=== PATIENT | male | born 1935 | race American Indian/Alaskan Native ===

== ENCOUNTER 2022-03-24 05:00 | Inpatient (IN) | payer MEDICARE ==
--- NOTE | 2022-03-24 05:08 | Event Note ---
Date: 03/24/22 EMS documentation not available at time of chart dictation Verbal report received from emergency medical services Medical screening examination note: 86-year-old gentleman with reported history of dementia, brought to the hospital by emergency medical services. Apparently, the patient was at home, and was felt to be less responsive than usual, and thus family called 911. EMS reports the patient is awake, and vigorously moving extremities in the ambulance. They report unremarkable vital signs and unremarkable Accu-Chek. In the emergency room, the patient is awake, moving 4 extremities, breathing spontaneously, and endorses no acute complaints. Suspect underlying dementia. Obtain appropriate laboratory studies, urinalysis, noncontrast CT scan of the brain. Detailed history and physical to be performed by oncoming ER provider. Vital Signs 03/24/22 05:05 Temperature 98.6 F Pulse Rate 80 Respiratory 16 Rate Blood Pressure 117/82 [Right] O2 Sat by Pulse 99 Oximetry
--- NOTE | 2022-03-24 05:43 | XRay Report ---
CHEST 1 VIEW INDICATION / CLINICAL INFORMATION: Altered Mental Status. COMPARISON: None available. FINDINGS: SUPPORT DEVICES: None. HEART / MEDIASTINUM: No significant abnormality. LUNGS / PLEURA: No significant pulmonary or pleural abnormality. No pneumothorax. ADDITIONAL FINDINGS: No significant additional findings. IMPRESSION: 1. No acute findings. Signer Name: Munir Nava MD Signed: 03/24/2022 5:39 AM Workstation Name: [id number]
[2022-03-24 05:58] LABS: Albumin 4.1 g/dL (3.9-5); Calcium 9.8 mg/dL (8.4-10.2)
[2022-03-24 06:07] LABS: Mean Corpuscular HGB Conc 33 % (32-34); Mean Corpuscular Volume 87 fl (84-94); Platelet Count 174 K/mm3 (140-440); Red Blood Count 4.15 M/mm3 (3.65-5.03); Red Cell Distribution Width 14.7 % (13.2-15.2)
[2022-03-24 06:13] LABS: Chol/HDL Ratio 4.87 %
[2022-03-24 06:33] LABS: INR 1.03 (0.87-1.13)
[2022-03-24] MEDS ORDERED: SODIUM CHLORIDE 0.9% 1000 ML 1,000 ML IV ONE (06:35)
--- NOTE | 2022-03-24 06:35 | Cat Scan Report ---
CT HEAD WITHOUT CONTRAST INDICATION / CLINICAL INFORMATION: Altered Mental Status. TECHNIQUE: All CT scans at this location are performed using CT dose reduction for ALARA by means of automated e xposure control. COMPARISON: None available. FINDINGS: HEMORRHAGE: None. EXTRA-AXIAL SPACES: Normal in size and morphology for the patient's age. VENTRICULAR SYSTEM: Normal in size and morphology for the patient's age. 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 Moderate cerebral atrophy. No significant abnormality. No acute territorial infarct. MIDLINE SHIFT OR HERNIATION: None. CEREBELLUM / BRAINSTEM: No significant abnormality. ORBITS: Normal as visualized. SOFT TISSUES of HEAD: No significant abnormality. CALVARIUM: No significant abnormality. PARANASAL SINUSES / MASTOID AIR CELLS: Moderate mucosal thickening right maxillary sinus. ADDITIONAL FINDINGS: None. IMPRESSION: 1. No acute intracranial abnormality. 2. Severe microangiopathy 3. Mucosal sinus disease right maxillary sinus Signer Name: Munir Nava MD Signed: 03/24/2022 6:30 AM Workstation Name: [id number]
--- NOTE | 2022-03-24 06:41 | Emergency Department Report ---
ED Altered Mental Status HPI - General Chief Complaint: Altered Mental Status Stated Complaint: AMS Time Seen by Provider: 03/24/22 06:12 Source: family, EMS Mode of arrival: Stretcher Limitations: No Limitations - History of Present Illness Initial Comments: Patient is 86-year-old male with history of dementia and benign prostatic hypertrophy. Patient brought to the emergency room via EMS from home for evaluation of altered mental status. Patient daughter at bedside and giving the story. She stated that he went to the bathroom around 4 AM and when she went back to check on him she found him leaning on the toilet backwards and not breathing. Patient daughter stated that she immediately called 911 and approximately 5 minutes later she saw him moving his left upper extremity. Upon arrival to the ER patient was agitated and required restraint. Patient is moving all his extremities no facial droop was noticed. Stroke scale was 0. MD Complaint: altered mental status -: Sudden, This morning - Related Data Allergies Allergy/AdvReac Type Severity Reaction Status Date / Time No Known Allergies Allergy Verified 03/24/22 05:19 ED Review of Systems ROS: Stated complaint: AMS Other details as noted in HPI Comment: Unobtainable due to pts medical conditions ED Physical Exam - General Limitations: No Limitations General appearance: alert, in no apparent distress - Head Head exam: Present: atraumatic, normocephalic, normal inspection - Eye Eye exam: Present: normal appearance - ENT ENT exam: Present: mucous membranes dry - Neck Neck exam: Present: normal inspection, full ROM. Absent: tenderness, meningismus - Respiratory Respiratory exam: Present: normal lung sounds bilaterally - Cardiovascular Cardiovascular Exam: Present: regular rate, normal rhythm, normal heart sounds - GI/Abdominal GI/Abdominal exam: Present: soft, normal bowel sounds. Absent: distended, tenderness, guarding, rebound, rigid, organomegaly, mass, bruit, pulsatile mass, hernia - Extremities Exam Extremities exam: Present: normal inspection, full ROM, normal capillary refill. Absent: tenderness - Back Exam Back exam: Present: normal inspection, full ROM. Absent: CVA tenderness (R), CVA tenderness (L) - Neurological Exam Neurological exam: Present: alert, altered, CN II-XII intact, reflexes normal. Absent: motor sensory deficit - Psychiatric Psychiatric exam: Present: flat affect - Skin Skin exam: Present: warm, intact, normal color ED Course Vital Signs 03/24/22 03/24/22 05:05 05:52 Temperature 98.6 F 97.8 F Pulse Rate 80 77 Respiratory 16 16 Rate Blood Pressure 117/82 107/67 [Right] O2 Sat by Pulse 99 100 Oximetry - Lab Data Result diagrams: 03/24/22 05:10 03/24/22 05:10 Lab Results 03/24/22 03/24/22 03/24/22 Range/Units 05:10 05:10 05:10 WBC 3.1 L (4.5-11.0) K/mm3 RBC 4.15 (3.65-5.03) M/mm3 Hgb 12.0 (11.8-15.2) gm/dl Hct 36.0 (35.5-45.6) % MCV 87 (84-94) fl MCH 29 (28-32) pg MCHC 33 (32-34) % RDW 14.7 (13.2-15.2) % Plt Count 174 (140-440) K/mm3 Add Manual Diff Complete Total Counted 100 Seg Neuts % (Manual) 77.0 H (40.0-70.0) % Band Neutrophils % 0 % Lymphocytes % (Manual) 21.0 (13.4-35.0) % Reactive Lymphs % (Man) 0 % Monocytes % (Manual) 1.0 (0.0-7.3) % Eosinophils % (Manual) 1.0 (0.0-4.3) % Basophils % (Manual) 0 (0.0-1.8) % Metamyelocytes % 0 % Myelocytes % 0 % Promyelocytes % 0 % Blast Cells % 0 % Nucleated RBC % Not Reportable Seg Neutrophils # Man 2.4 (1.8-7.7) K/mm3 Band Neutrophils # 0.0 K/mm3 Lymphocytes # (Manual) 0.7 L (1.2-5.4) K/mm3 Abs React Lymphs (Man) 0.0 K/mm3 Monocytes # (Manual) 0.0 (0.0-0.8) K/mm3 Eosinophils # (Manual) 0.0 (0.0-0.4) K/mm3 Basophils # (Manual) 0.0 (0.0-0.1) K/mm3 Metamyelocytes # 0.0 K/mm3 Myelocytes # 0.0 K/mm3 Promyelocytes # 0.0 K/mm3 Blast Cells # 0.0 K/mm3 WBC Morphology Not Reportable Hypersegmented Neuts Not Reportable Hyposegmented Neuts Not Reportable Hypogranular Neuts Not Reportable Smudge Cells Not Reportable Toxic Granulation Not Reportable Toxic Vacuolation Not Reportable Dohle Bodies Not Reportable Pelger-Huet Anomaly Not Reportable Nadine Rods Not Reportable Platelet Estimate Consistent w auto Clumped Platelets Not Reportable Plt Clumps, EDTA Not Reportable Large Platelets Not Reportable Giant Platelets Not Reportable Platelet Satelliting Not Reportable Plt Morphology Comment Not Reportable RBC Morphology Not Reportable Dimorphic RBCs Not Reportable Polychromasia Not Reportable Hypochromasia Not Reportable Poikilocytosis Not Reportable Anisocytosis Not Reportable Microcytosis Not Reportable Macrocytosis Not Reportable Spherocytes Not Reportable Pappenheimer Bodies Not Reportable Sickle Cells Not Reportable Target Cells Not Reportable Tear Drop Cells Not Reportable Ovalocytes 1+ Helmet Cells Not Reportable [place] Bodies Not Reportable Ing[place] Rings Not Reportable Malia Cells Not Reportable Bite Cells Not Reportable Crenated Cell Not Reportable Elliptocytes Not Reportable Acanthocytes (Spur) Not Reportable Rouleaux Not Reportable Hemoglobin C Crystals Not Reportable Schistocytes Not Reportable Malaria parasites Not Reportable Elias Bodies Not Reportable Hem Pathologist Commnt No PT 14.6 (12.2-14.9) Sec. INR 1.03 (0.87-1.13) Sodium 144 (137-145) mmol/L Potassium 4.1 (3.6-5.0) mmol/L Chloride 109.8 H (98-107) mmol/L Carbon Dioxide 18 L (22-30) mmol/L Anion Gap 20 mmol/L BUN 23 H (9-20) mg/dL Creatinine 1.7 H (0.8-1.3) mg/dL Estimated GFR 38 ml/min BUN/Creatinine Ratio 14 % Glucose 105 H (75-100) mg/dL Calcium 9.8 (8.4-10.2) mg/dL Magnesium 2.30 (1.7-2.3) mg/dL Total Bilirubin 1.30 H (0.1-1.2) mg/dL AST 17 (5-40) units/L ALT 10 (7-56) units/L Alkaline Phosphatase 70 (35-129) units/L Ammonia (25-60) umol/L Total Creatine Kinase 145 (55-170) units/L Troponin T 0.058 H (0.00-0.029) ng/mL Total Protein 7.3 (6.3-8.2) g/dL Albumin 4.1 (3.9-5) g/dL Albumin/Globulin Ratio 1.3 % Triglycerides 122 (2-149) mg/dL Cholesterol 195 (50-199) mg/dL LDL Cholesterol Direct 124 (50-130) mg/dL HDL Cholesterol 40 (40-59) mg/dL Cholesterol/HDL Ratio 4.87 % TSH (0.270-4.200) mlU/mL Salicylates (2.8-20.0) mg/dL Acetaminophen (10.0-30.0) ug/mL Plasma/Serum Alcohol (0-0.07) % 03/24/22 03/24/22 03/24/22 Range/Units 05:10 05:10 05:10 WBC (4.5-11.0) K/mm3 RBC (3.65-5.03) M/mm3 Hgb (11.8-15.2) gm/dl Hct (35.5-45.6) % MCV (84-94) fl MCH (28-32) pg MCHC (32-34) % RDW (13.2-15.2) % Plt Count (140-440) K/mm3 Add Manual Diff Total Counted Seg Neuts % (Manual) (40.0-70.0) % Band Neutrophils % % Lymphocytes % (Manual) (13.4-35.0) % Reactive Lymphs % (Man) % Monocytes % (Manual) (0.0-7.3) % Eosinophils % (Manual) (0.0-4.3) % Basophils % (Manual) (0.0-1.8) % Metamyelocytes % % Myelocytes % % Promyelocytes % % Blast Cells % % Nucleated RBC % Seg Neutrophils # Man (1.8-7.7) K/mm3 Band Neutrophils # K/mm3 Lymphocytes # (Manual) (1.2-5.4) K/mm3 Abs React Lymphs (Man) K/mm3 Monocytes # (Manual) (0.0-0.8) K/mm3 Eosinophils # (Manual) (0.0-0.4) K/mm3 Basophils # (Manual) (0.0-0.1) K/mm3 Metamyelocytes # K/mm3 Myelocytes # K/mm3 Promyelocytes # K/mm3 Blast Cells # K/mm3 WBC Morphology Hypersegmented Neuts Hyposegmented Neuts Hypogranular Neuts Smudge Cells Toxic Granulation Toxic Vacuolation Dohle Bodies Pelger-Huet Anomaly Nadine Rods Platelet Estimate Clumped Platelets Plt Clumps, EDTA Large Platelets Giant Platelets Platelet Satelliting Plt Morphology Comment RBC Morphology Dimorphic RBCs Polychromasia Hypochromasia Poikilocytosis Anisocytosis Microcytosis Macrocytosis Spherocytes Pappenheimer Bodies Sickle Cells Target Cells Tear Drop Cells Ovalocytes Helmet Cells Benson-[place] Bodies Ingalls Rings Malia Cells Bite Cells Crenated Cell Elliptocytes Acanthocytes (Spur) Rouleaux Hemoglobin C Crystals Schistocytes Malaria parasites Elias Bodies Hem Pathologist Commnt PT (12.2-14.9) Sec. INR (0.87-1.13) Sodium (137-145) mmol/L Potassium (3.6-5.0) mmol/L Chloride (98-107) mmol/L Carbon Dioxide (22-30) mmol/L Anion Gap mmol/L BUN (9-20) mg/dL Creatinine (0.8-1.3) mg/dL Estimated GFR ml/min BUN/Creatinine Ratio % Glucose (75-100) mg/dL Calcium (8.4-10.2) mg/dL Magnesium (1.7-2.3) mg/dL Total Bilirubin (0.1-1.2) mg/dL AST (5-40) units/L ALT (7-56) units/L Alkaline Phosphatase (35-129) units/L Ammonia 14.0 L (25-60) umol/L Total Creatine Kinase (55-170) units/L Troponin T (0.00-0.029) ng/mL Total Protein (6.3-8.2) g/dL Albumin (3.9-5) g/dL Albumin/Globulin Ratio % Triglycerides (2-149) mg/dL Cholesterol (50-199) mg/dL LDL Cholesterol Direct (50-130) mg/dL HDL Cholesterol (40-59) mg/dL Cholesterol/HDL Ratio % TSH 2.580 (0.270-4.200) mlU/mL Salicylates < 0.3 L (2.8-20.0) mg/dL Acetaminophen (10.0-30.0) ug/mL Plasma/Serum Alcohol (0-0.07) % 03/24/22 03/24/22 Range/Units 05:10 05:10 WBC (4.5-11.0) K/mm3 RBC (3.65-5.03) M/mm3 Hgb (11.8-15.2) gm/dl Hct (35.5-45.6) % MCV (84-94) fl MCH (28-32) pg MCHC (32-34) % RDW (13.2-15.2) % Plt Count (140-440) K/mm3 Add Manual Diff Total Counted Seg Neuts % (Manual) (40.0-70.0) % Band Neutrophils % % Lymphocytes % (Manual) (13.4-35.0) % Reactive Lymphs % (Man) % Monocytes % (Manual) (0.0-7.3) % Eosinophils % (Manual) (0.0-4.3) % Basophils % (Manual) (0.0-1.8) % Metamyelocytes % % Myelocytes % % Promyelocytes % % Blast Cells % % Nucleated RBC % Seg Neutrophils # Man (1.8-7.7) K/mm3 Band Neutrophils # K/mm3 Lymphocytes # (Manual) (1.2-5.4) K/mm3 Abs React Lymphs (Man) K/mm3 Monocytes # (Manual) (0.0-0.8) K/mm3 Eosinophils # (Manual) (0.0-0.4) K/mm3 Basophils # (Manual) (0.0-0.1) K/mm3 Metamyelocytes # K/mm3 Myelocytes # K/mm3 Promyelocytes # K/mm3 Blast Cells # K/mm3 WBC Morphology Hypersegmented Neuts Hyposegmented Neuts Hypogranular Neuts Smudge Cells Toxic Granulation Toxic Vacuolation Dohle Bodies Pelger-Huet Anomaly Nadine Rods Platelet Estimate Clumped Platelets Plt Clumps, EDTA Large Platelets Giant Platelets Platelet Satelliting Plt Morphology Comment RBC Morphology Dimorphic RBCs Polychromasia Hypochromasia Poikilocytosis Anisocytosis Microcytosis Macrocytosis Spherocytes Pappenheimer Bodies Sickle Cells Target Cells Tear Drop Cells Ovalocytes Helmet Cells Benson-[place] Bodies Ing[place] Rings Cornish Cells Bite Cells Crenated Cell Elliptocytes Acanthocytes (Spur) Rouleaux Hemoglobin C Crystals Schistocytes Malaria parasites Elias Bodies Hem Pathologist Commnt PT (12.2-14.9) Sec. INR (0.87-1.13) Sodium (137-145) mmol/L Potassium (3.6-5.0) mmol/L Chloride (98-107) mmol/L Carbon Dioxide (22-30) mmol/L Anion Gap mmol/L BUN (9-20) mg/dL Creatinine (0.8-1.3) mg/dL Estimated GFR ml/min BUN/Creatinine Ratio % Glucose (75-100) mg/dL Calcium (8.4-10.2) mg/dL Magnesium (1.7-2.3) mg/dL Total Bilirubin (0.1-1.2) mg/dL AST (5-40) units/L ALT (7-56) units/L Alkaline Phosphatase (35-129) units/L Ammonia (25-60) umol/L Total Creatine Kinase (55-170) units/L Troponin T (0.00-0.029) ng/mL Total Protein (6.3-8.2) g/dL Albumin (3.9-5) g/dL Albumin/Globulin Ratio % Triglycerides (2-149) mg/dL Cholesterol (50-199) mg/dL LDL Cholesterol Direct (50-130) mg/dL HDL Cholesterol (40-59) mg/dL Cholesterol/HDL Ratio % TSH (0.270-4.200) mlU/mL Salicylates (2.8-20.0) mg/dL Acetaminophen < 5.0 L (10.0-30.0) ug/mL Plasma/Serum Alcohol < 0.01 (0-0.07) % - EKG Data -: EKG Interpreted by Me EKG shows normal: sinus rhythm Rate: normal Interpretation: no acute changes - Radiology Data Radiology results: report reviewed - Medical Decision Making Patient is 86-year-old male with history of dementia and benign prostatic hypert rophy. Patient brought to the emergency room via EMS from home for evaluation of altered mental status. Patient daughter at bedside and giving the story. She stated that he went to the bathroom around 4 AM and when she went back to check on him she found him leaning on the toilet backwards and not breathing. Patient daughter stated that she immediately called 911 and approximately 5 minutes later she saw him moving his left upper extremity. Upon arrival to the ER patient was agitated and required restraint. Patient is moving all his extremities no facial droop was noticed. Stroke scale was 0. EKG shows sinus rhythm with no ST elevation. CT brain is negative for acute finding. Chest x-ray is unremarkable. Labs reviewed and showed slightly elevated troponin 0.05. Patient creatinine is 1.7. I discussed the patient with Dr. Gomez, he agreed to admit the patient to medical service for further management. Critical Care Time: Yes Critical care time in (mins) excluding proc time.: 35 Critical care attestation.: If time is entered above; I have spent that time in minutes in the direct care of this critically ill patient, excluding procedure time. ED Disposition Clinical Impression: Syncope and collapse, Elevated troponin, Acute renal failure Disposition: ADMITTED INPATIENT Is pt being admited?: Yes Condition: Stable Instructions: Syncope (ED)
[2022-03-24 06:56] LABS: Basophils % (Manual) 0 % (0.0-1.8); Ovalocytes 1+; Platelet Estimate Consistent w Auto; Total Cells Counted 100
[2022-03-24 08:43] LABS: BUN/Creatinine Ratio 17; Blood Urea Nitrogen 20 mg/dL (9-20); Calcium 7.1 mg/dL (8.4-10.2); Hemolysis Index 7
[2022-03-24] MEDS ORDERED: NALOXONE 0.4 MG/1 ML INJ IV PRN (08:45)
[2022-03-24] MEDS ORDERED: ONDANSETRON 4 MG/2 ML INJ IV PRN (08:45)
[2022-03-24] MEDS ORDERED: oxyCODONE /ACETAMINOPHEN 5-325MG TAB PO PRN (08:45)
--- NOTE | 2022-03-24 08:49 | History and Physical Report ---
History of Present Illness Date of examination: 03/24/22 Date of admission: 03/24/22 Chief complaint: Repeated falls and syncopal episode today. History of present illness: Patient is 86-year-old male with history of dementia and benign prostatic hypertrophy. Patient brought to the emergency room via EMS from home for evaluation of altered mental status. Patient daughter at bedside and giving the story. She stated that he went to the bathroom around 4 AM and when she went back to check on him she found him leaning on the toilet backwards and not breathing. Patient daughter stated that she immediately called 911 and approximately 5 minutes later she saw him moving his left upper extremity. Upon arrival to the ER patient was agitated and required restraint. Patient is moving all his extremities no facial droop was noticed. Stroke scale was 0. Information about this as obtained from the ER physician. Discussed with the family who at the bedside etiology the patient has been with repeated falls which has been worse in the last few weeks. He is known to fall once a week but dialysis day daily occurrence. He was in hospice but there is discussion about transferring him to another hospital as a result he had revoked the previous hospice. They do understand that his dementia is progressive. When I asked if they wanted a full work-up on him they were undecided about this. Intubated they would like him evaluated for syncopal episode that he experienced and also the repeated falls. They also reported that he has not been eating as much as he normally does he would have an issue every now and then according to the family. The last week has actually had very poor appetite. He is assisted for all toileting activities. Work-up in the ER showed mildly elevated troponin which could be attributed to the elevated creatinine and nevertheless he also had a significantly elevated D-dimer. Head CT and chest x-ray showed no acute pathology Past History Past Medical History: diabetes, hypertension, other (Dementia prior known history of prostate cancer) Social history: lives with family, AND/DNR-allow natural . denies: smoking, alcohol abuse, prescription drug abuse, IV drug use Family history: no significant family history Medications and Allergies Allergies Allergy/AdvReac Type Severity Reaction Status Date / Time No Known Allergies Allergy Verified 03/24/22 05:19 Active Meds: Active Medications Acetaminophen (Acetaminophen 325 Mg Tab) 650 mg PO Q4H PRN PRN Reason: Pain MILD(1-3)/Fever >100.5/RAMIREZ Famotidine (Famotidine 20 Mg/2 Ml Inj) 20 mg IV BID [facility] Heparin Sodium (Porcine) (Heparin 5,000 Unit/1 Ml Vial) 5,000 unit SUB-Q Q8HR [facility] Dextrose/Sodium Chloride (D5ns) 1,000 mls @ 75 mls/hr IV DIRECT [facility] Naloxone HCl (Naloxone 0.4 Mg/1 Ml Inj) 0.1 mg IV Q2MIN PRN PRN Reason: Res Rate </= 8 or 02 SAT < 92% Ondansetron HCl (Ondansetron 4 Mg/2 Ml Inj) 4 mg IV Q8H PRN PRN Reason: Nausea And Vomiting Oxycodone/Acetaminophen (Oxycodone /Acetaminophen 5-325mg Tab) 1 tab PO Q6H PRN PRN Reason: Pain, Moderate (4-6) Senna (Sennosides 8.6 Mg Tab) 8.6 mg PO Q12HR LIB[facility] Sodium Chloride (Sodium Chloride 0.9% 10 Ml Flush Syringe) 10 ml IV BID LIBERTY Sodium Chloride (Sodium Chloride 0.9% 10 Ml Flush Syringe) 10 ml IV PRN PRN PRN Reason: LINE FLUSH Review of Systems ROS unobtainable: due to mental status (Information will be obtained from family see H&P) Exam - Physical Exam Narrative exam: VITAL SIGNS: Reviewed. GENERAL: The patient appears normally developed, otherwise in position vital signs as documented. HEAD: No signs of head trauma. EYES: Pupils are equal. Extraocular motions intact. EARS: Hearing grossly intact. MOUTH: Oropharynx is normal. NECK: No adenopathy, no JVD. CHEST: Chest with clear breath sounds bilaterally. No wheezes, rales, or rhonchi. CARDIAC: Regular rate and rhythm. S1 and S2, without murmurs, gallops, or rubs. VASCULAR: No Edema. Peripheral pulses normal and equal in all extremities. ABDOMEN: Soft, non tender and non distended. No rebound or guarding, and no masses palpated. Bowel Sounds normal. MUSCULOSKELETAL: Good range of motion of all major joints. Extremities without clubbing, cyanosis or edema. NEUROLOGIC EXAM: Alert and oriented x person only no focal sensory or strength deficits. Speech slurred . Follows some commands. PSYCHIATRIC: Mood normal. SKIN: detail exam as documented in skin assessment - Constitutional Vitals: Temp Pulse Resp BP Pulse Ox 97.8 F 77 16 107/67 100 03/24/22 05:52 03/24/22 05:52 03/24/22 05:52 03/24/22 05:52 03/24/22 05:52 HEART Score - HEART Score Troponin: Troponin T 0.058 ng/mL (0.00-0.029) H 03/24/22 05:10 Results - Labs CBC & Chem 7: 03/24/22 05:10 03/24/22 08:08 Labs: Laboratory Last Values WBC 3.1 K/mm3 (4.5-11.0) L 03/24/22 05:10 RBC 4.15 M/mm3 (3.65-5.03) 03/24/22 05:10 Hgb 12.0 gm/dl (11.8-15.2) 03/24/22 05:10 Hct 36.0 % (35.5-45.6) 03/24/22 05:10 MCV 87 fl (84-94) 03/24/22 05:10 MCH 29 pg (28-32) 03/24/22 05:10 MCHC 33 % (32-34) 03/24/22 05:10 RDW 14.7 % (13.2-15.2) 03/24/22 05:10 Plt Count 174 K/mm3 (140-440) 03/24/22 05:10 Add Manual Diff Complete 03/24/22 05:10 Total Counted 100 03/24/22 05:10 Seg Neuts % (Manual) 77.0 % (40.0-70.0) H 03/24/22 05:10 Band Neutrophils % 0 % 03/24/22 05:10 Lymphocytes % (Manual) 21.0 % (13.4-35.0) 03/24/22 05:10 Reactive Lymphs % (Man) 0 % 03/24/22 05:10 Monocytes % (Manual) 1.0 % (0.0-7.3) 03/24/22 05:10 Eosinophils % (Manual) 1.0 % (0.0-4.3) 03/24/22 05:10 Basophils % (Manual) 0 % (0.0-1.8) 03/24/22 05:10 Metamyelocytes % 0 % 03/24/22 05:10 Myelocytes % 0 % 03/24/22 05:10 Promyelocytes % 0 % 03/24/22 05:10 Blast Cells % 0 % 03/24/22 05:10 Nucleated RBC % Not Reportable 03/24/22 05:10 Seg Neutrophils # Man 2.4 K/mm3 (1.8-7.7) 03/24/22 05:10 Band Neutrophils # 0.0 K/mm3 03/24/22 05:10 Lymphocytes # (Manual) 0.7 K/mm3 (1.2-5.4) L 03/24/22 05:10 Abs React Lymphs (Man) 0.0 K/mm3 03/24/22 05:10 Monocytes # (Manual) 0.0 K/mm3 (0.0-0.8) 03/24/22 05:10 Eosinophils # (Manual) 0.0 K/mm3 (0.0-0.4) 03/24/22 05:10 Basophils # (Manual) 0.0 K/mm3 (0.0-0.1) 03/24/22 05:10 Metamyelocytes # 0.0 K/mm3 03/24/22 05:10 Myelocytes # 0.0 K/mm3 03/24/22 05:10 Promyelocytes # 0.0 K/mm3 03/24/22 05:10 Blast Cells # 0.0 K/mm3 03/24/22 05:10 WBC Morphology Not Reportable 03/24/22 05:10 Hypersegmented Neuts Not Reportable 03/24/22 05:10 Hyposegmented Neuts Not Reportable 03/24/22 05:10 Hypogranular Neuts Not Reportable 03/24/22 05:10 Smudge Cells Not Reportable 03/24/22 05:10 Toxic Granulation Not Reportable 03/24/22 05:10 Toxic Vacuolation Not Reportable 03/24/22 05:10 Dohle Bodies Not Reportable 03/24/22 05:10 Pelger-Huet Anomaly Not Reportable 03/24/22 05:10 Nadine Rods Not Reportable 03/24/22 05:10 Platelet Estimate Consistent w auto 03/24/22 05:10 Clumped Platelets Not Reportable 03/24/22 05:10 Plt Clumps, EDTA Not Reportable 03/24/22 05:10 Large Platelets Not Reportable 03/24/22 05:10 Giant Platelets Not Reportable 03/24/22 05:10 Platelet Satelliting Not Reportable 03/24/22 05:10 Plt Morphology Comment Not Reportable 03/24/22 05:10 RBC Morphology Not Reportable 03/24/22 05:10 Dimorphic RBCs Not Reportable 03/24/22 05:10 Polychromasia Not Reportable 03/24/22 05:10 Hypochromasia Not Reportable 03/24/22 05:10 Poikilocytosis Not Reportable 03/24/22 05:10 Anisocytosis Not Reportable 03/24/22 05:10 Microcytosis Not Reportable 03/24/22 05:10 Macrocytosis Not Reportable 03/24/22 05:10 Spherocytes Not Reportable 03/24/22 05:10 Pappenheimer Bodies Not Reportable 03/24/22 05:10 Sickle Cells Not Reportable 03/24/22 05:10 Target Cells Not Reportable 03/24/22 05:10 Tear Drop Cells Not Reportable 03/24/22 05:10 Ovalocytes 1+ 03/24/22 05:10 Helmet Cells Not Reportable 03/24/22 05:10 [place] Bodies Not Reportable 03/24/22 05:10 [place] Rings Not Reportable 03/24/22 05:10 [place] Cells Not Reportable 03/24/22 05:10 Bite Cells Not Reportable 03/24/22 05:10 Crenated Cell Not Reportable 03/24/22 05:10 Elliptocytes Not Reportable 03/24/22 05:10 Acanthocytes (Spur) Not Reportable 03/24/22 05:10 Rouleaux Not Reportable 03/24/22 05:10 Hemoglobin C Crystals Not Reportable 03/24/22 05:10 Schistocytes Not Reportable 03/24/22 05:10 Malaria parasites Not Reportable 03/24/22 05:10 Elias Bodies Not Reportable 03/24/22 05:10 Hem Pathologist Commnt No 03/24/22 05:10 PT 14.6 Sec. (12.2-14.9) 03/24/22 05:10 INR 1.03 (0.87-1.13) 03/24/22 05:10 Sodium 146 mmol/L (137-145) H 03/24/22 08:08 Potassium 3.4 mmol/L (3.6-5.0) L 03/24/22 08:08 Chloride 121.2 mmol/L (98-107) H 03/24/22 08:08 Carbon Dioxide 16 mmol/L (22-30) L 03/24/22 08:08 Anion Gap 12 mmol/L 03/24/22 08:08 BUN 20 mg/dL (9-20) 03/24/22 08:08 Creatinine 1.2 mg/dL (0.8-1.3) 03/24/22 08:08 Estimated GFR > 60 ml/min 03/24/22 08:08 BUN/Creatinine Ratio 17 % 03/24/22 08:08 Glucose 80 mg/dL (75-100) 03/24/22 08:08 Calcium 7.1 mg/dL (8.4-10.2) L D 03/24/22 08:08 Magnesium 2.30 mg/dL (1.7-2.3) 03/24/22 05:10 Total Bilirubin 1.30 mg/dL (0.1-1.2) H 03/24/22 05:10 AST 17 units/L (5-40) 03/24/22 05:10 ALT 10 units/L (7-56) 03/24/22 05:10 Alkaline Phosphatase 70 units/L (35-129) 03/24/22 05:10 Ammonia 14.0 umol/L (25-60) L 03/24/22 05:10 Total Creatine Kinase 145 units/L (55-170) 03/24/22 05:10 Troponin T 0.058 ng/mL (0.00-0.029) H 03/24/22 05:10 Total Protein 7.3 g/dL (6.3-8.2) 03/24/22 05:10 Albumin 4.1 g/dL (3.9-5) 03/24/22 05:10 Albumin/Globulin Ratio 1.3 % 03/24/22 05:10 Triglycerides 122 mg/dL (2-149) 03/24/22 05:10 Cholesterol 195 mg/dL (50-199) 03/24/22 05:10 LDL Cholesterol Direct 124 mg/dL (50-130) 03/24/22 05:10 HDL Cholesterol 40 mg/dL (40-59) 03/24/22 05:10 Cholesterol/HDL Ratio 4.87 % 03/24/22 05:10 TSH 2.580 mlU/mL (0.270-4.200) 03/24/22 05:10 Salicylates < 0.3 mg/dL (2.8-20.0) L 03/24/22 05:10 Acetaminophen < 5.0 ug/mL (10.0-30.0) L 03/24/22 05:10 Plasma/Serum Alcohol < 0.01 % (0-0.07) 03/24/22 05:10 Assessment and Plan Assessment and plan: Patient is 86-year-old male with history of dementia and benign prostatic hypertrophy. Patient brought to the emergency room via EMS from home for evaluation of altered mental status. Patient daughter at bedside and giving the story. She stated that he went to the bathroom around 4 AM and when she went back to check on him she found him leaning on the toilet backwards and not breathing. Patient daughter stated that she immediately called 911 and approximately 5 minutes later she saw him moving his left upper extremity. Upon arrival to the ER patient was agitated and required restraint. Patient is moving all his extremities no facial droop was noticed. Stroke scale was 0. Information about this as obtained from the ER physician. Discussed with the family who at the bedside etiology the patient has been with repeated falls which has been worse in the last few weeks. He is known to fall once a week but dialysis day daily occurrence. He was in hospice but there is discussion about transferring him to another hospital as a result he had revoked the previous hospice. They do understand that his dementia is progressive. When I asked if they wanted a full work-up on him they were undecided about this. Intubated they would like him evaluated for syncopal episode that he experienced and also the repeated falls. They also reported that he has not been eating as much as he normally does he would have an issue every now and then according to the family. The last week has actually had very poor appetite. He is assisted for all toileting activities. Work-up in the ER showed mildly elevated troponin which could be attributed to the elevated creatinine and nevertheless he also had a significantly elevated D-dimer. 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 Sliding scale Fall precautions DVT/GI PROPHY ADVANCE CARE PLANNING DISCUSSED FOR 35 MINS Advance Directives: Yes Plan of care discussed with patient/family: Yes
[2022-03-24] MEDS ORDERED: ACETAMINOPHEN 325 MG TAB PO PRN (09:00)
[2022-03-24 09:12] LABS: Bacteria,Urine 4+ /HPF (Negative); Mucus,Urine 3+ /HPF
[2022-03-24 09:16] LABS: Color,Urine Straw (Yellow)
[2022-03-24 09:18] LABS: Bilirubin,Urine Negative (Negative); Blood,Urine Moderate (Negative)
[2022-03-24 09:19] LABS: Urobilinogen,Urine < 2.0 mg/dL (<2.0)
[2022-03-24 09:29] LABS: INR 1.14 (0.87-1.13)
[2022-03-24 09:48] LABS: Partial Thromboplastin Time 69.3 Sec. (24.2-36.6)
[2022-03-24] MEDS ORDERED: ACETAMINOPHEN 650 MG RECT SUPP PR PRN (10:00)
[2022-03-24] MEDS ORDERED: PROMETHAZINE 25 MG TAB PO PRN (10:00)
[2022-03-24] MEDS ORDERED: HALOPERIDOL LACTATE 10 MG/5 ML ORAL LIQD PO PRN (10:00)
[2022-03-24] MEDS ORDERED: HYOSCYAMINE SUBL 0.125 MG TAB SL PRN (10:00)
[2022-03-24] MEDS ORDERED: DEXTROSE 50% IN WATER (25GM) 50 ML SYRINGE IV PRN (10:00)
[2022-03-24] MEDS: amLODIPine 10 MG TAB PO SCH (11:21)
[2022-03-24] MEDS: SENNOSIDES 8.6 MG TAB PO SCH ×2 (11:21→22:15)
[2022-03-24] MEDS: SERTRALINE 100 MG TAB PO SCH (11:21)
[2022-03-24] MEDS: FAMOTIDINE 20 MG/2 ML INJ IV SCH ×2 (11:24→22:17)
[2022-03-24] MEDS: LORazepam 0.5 MG TAB PO PRN ×2 (11:24→16:50)
[2022-03-24] MEDS: INSULIN LISPRO 100 UNIT/ML SUB-Q SCH ×3 (11:32→22:16)
--- NOTE | 2022-03-24 12:17 | Electrocardiograph Report ---
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
[2022-03-24] MEDS: HEPARIN 5,000 UNIT/1 ML VIAL SUB-Q SCH ×2 (13:46→22:15)
[2022-03-24 13:59] LABS: Creatine Kinase MB 3.5 ng/mL (0.0-4.0)
[2022-03-24] MEDS ORDERED: LORazepam 2 MG/ML VIAL IV PRN (19:50)
[2022-03-24] MEDS: TEMAZEPAM 15 MG CAP PO SCH (22:15)
[2022-03-24] MEDS: QUEtiapine 25 MG TAB PO SCH (22:15)
[2022-03-25 00:58] LABS: Creatine Kinase MB 3.8 ng/mL (0.0-4.0)
[2022-03-25] MEDS: D5W/0.9% NACL 1,000 ML IV SCH (03:19)
[2022-03-25] MEDS: HEPARIN 5,000 UNIT/1 ML VIAL SUB-Q SCH ×3 (05:01→21:27)
--- NOTE | 2022-03-25 07:35 | Progress Note ---
Assessment and Plan Assessment and plan: Patient is 86-year-old male with history of dementia and benign prostatic hypertrophy. Patient brought to the emergency room via EMS from home for evaluation of altered mental status. Patient daughter at bedside and giving the story. She stated that he went to the bathroom around 4 AM and when she went back to check on him she found him leaning on the toilet backwards and not breathing. Patient daughter stated that she immediately called 911 and approximately 5 minutes later she saw him moving his left upper extremity. Upon arrival to the ER patient was agitated and required restraint. Patient is moving all his extremities no facial droop was noticed. Stroke scale was 0. Information about this as obtained from the ER physician. Discussed with the family who at the bedside etiology the patient has been with repeated falls which has been worse in the last few weeks. He is known to fall once a week but dialysis day daily occurrence. He was in hospice but there is discussion about transferring him to another hospital as a result he had revoked the previous hospice. They do understand that his dementia is progressive. When I asked if they wanted a full work-up on him they were undecided about this. Intubated they would like him evaluated for syncopal episode that he experienced and also the repeated falls. They also reported that he has not been eating as much as he normally does he would have an issue every now and then according to the family. The last week has actually had very poor appetite. He is assisted for all toileting activities. Work-up in the ER showed mildly elevated troponin which could be attributed to the elevated creatinine and nevertheless he also had a significantly elevated D-dimer. Head CT and chest x-ray showed no acute pathology Failure to thrive as adult Autonomic dysfunction with syncopal episode Repeated falls Advanced dementia Acute on chronic metabolic encephalopathy which could be secondary to the cystitis Acute Cystitis Diabetes mellitus presumed based on home medication Leukopenia Hypokalemia Metabolic acidosis BPH Debility secondary to chronic disease PLAN Start on Empiric antibiotics for UTI Obtain CTAP due to hematuria which could be secondary to UTI Obtain Urine culture. Patient remains in restraints secondary to encephalopathy. ECHO obtained shows an EF of 65% with no left heart strain. Will recommend an outpatient event monitor and if patient declines hospice PT/OT Replace electrolytes Case management consult for assistance with possible Hospice transition Patient needs assist with ADL Family understands that patients condition is likely progressing Sliding scale Fall precautions DVT/GI PROPHY ADVANCE CARE PLANNING DISCUSSED FOR 35 MINS Discussed with case management to begin hospice and placement a referral. History Interval history: Patient seen and examined remains confused. Overnight patient was noted to be combative which resulted to imaging studies ordered not being obtained. Emotional why this was not communicated to the patient cannot get some COVID medications. Nevertheless he does not appear to be in any respiratory distress so I doubt that large pulmonary embolism is at play. Rounded with nurse at that Hospitalist Physical - Physical exam Narrative exam: VITAL SIGNS: Reviewed. GENERAL: The patient appears normally developed, otherwise in position vital signs as documented. HEAD: No signs of head trauma. EYES: Pupils are equal. Extraocular motions intact. EARS: Hearing grossly intact. MOUTH: Oropharynx is normal. NECK: No adenopathy, no JVD. CHEST: Chest with clear breath sounds bilaterally. No wheezes, rales, or rhonchi. CARDIAC: Regular rate and rhythm. S1 and S2, without murmurs, gallops, or rubs. VASCULAR: No Edema. Peripheral pulses normal and equal in all extremities. ABDOMEN: Soft, non tender and non distended. No rebound or guarding, and no masses palpated. Bowel Sounds normal. MUSCULOSKELETAL: Good range of motion of all major joints. Extremities without clubbing, cyanosis or edema. NEUROLOGIC EXAM: Alert and oriented x person only no focal sensory or strength deficits. Speech much improved compared to yesterday but 1 word syllable. Follows some commands. PSYCHIATRIC: Mood agitated SKIN: detail exam as documented in skin assessment - Constitutional Vitals: Temp Pulse Resp BP Pulse Ox 98.1 F 72 18 112/79 99 03/25/22 03:23 03/24/22 23:36 03/25/22 03:23 03/25/22 03:23 03/25/22 01:39 HEART Score - HEART Score Troponin: Troponin T 0.025 ng/mL (0.00-0.029) 03/25/22 00:28 Results - Labs CBC & Chem 7: 03/25/22 07:36 03/25/22 07:36 Labs: Laboratory Last Values WBC 3.1 K/mm3 (4.5-11.0) L 03/24/22 05:10 RBC 4.15 M/mm3 (3.65-5.03) 03/24/22 05:10 Hgb 12.0 gm/dl (11.8-15.2) 03/24/22 05:10 Hct 36.0 % (35.5-45.6) 03/24/22 05:10 MCV 87 fl (84-94) 03/24/22 05:10 MCH 29 pg (28-32) 03/24/22 05:10 MCHC 33 % (32-34) 03/24/22 05:10 RDW 14.7 % (13.2-15.2) 03/24/22 05:10 Plt Count 174 K/mm3 (140-440) 03/24/22 05:10 Add Manual Diff Complete 03/24/22 05:10 Total Counted 100 03/24/22 05:10 Seg Neuts % (Manual) 77.0 % (40.0-70.0) H 03/24/22 05:10 Band Neutrophils % 0 % 03/24/22 05:10 Lymphocytes % (Manual) 21.0 % (13.4-35.0) 03/24/22 05:10 Reactive Lymphs % (Man) 0 % 03/24/22 05:10 Monocytes % (Manual) 1.0 % (0.0-7.3) 03/24/22 05:10 Eosinophils % (Manual) 1.0 % (0.0-4.3) 03/24/22 05:10 Basophils % (Manual) 0 % (0.0-1.8) 03/24/22 05:10 Metamyelocytes % 0 % 03/24/22 05:10 Myelocytes % 0 % 03/24/22 05:10 Promyelocytes % 0 % 03/24/22 05:10 Blast Cells % 0 % 03/24/22 05:10 Nucleated RBC % Not Reportable 03/24/22 05:10 Seg Neutrophils # Man 2.4 K/mm3 (1.8-7.7) 03/24/22 05:10 Band Neutrophils # 0.0 K/mm3 03/24/22 05:10 Lymphocytes # (Manual) 0.7 K/mm3 (1.2-5.4) L 03/24/22 05:10 Abs React Lymphs (Man) 0.0 K/mm3 03/24/22 05:10 Monocytes # (Manual) 0.0 K/mm3 (0.0-0.8) 03/24/22 05:10 Eosinophils # (Manual) 0.0 K/mm3 (0.0-0.4) 03/24/22 05:10 Basophils # (Manual) 0.0 K/mm3 (0.0-0.1) 03/24/22 05:10 Metamyelocytes # 0.0 K/mm3 03/24/22 05:10 Myelocytes # 0.0 K/mm3 03/24/22 05:10 Promyelocytes # 0.0 K/mm3 03/24/22 05:10 Blast Cells # 0.0 K/mm3 03/24/22 05:10 WBC Morphology Not Reportable 03/24/22 05:10 Hypersegmented Neuts Not Reportable 03/24/22 05:10 Hyposegmented Neuts Not Reportable 03/24/22 05:10 Hypogranular Neuts Not Reportable 03/24/22 05:10 Smudge Cells Not Reportable 03/24/22 05:10 Toxic Granulation Not Reportable 03/24/22 05:10 Toxic Vacuolation Not Reportable 03/24/22 05:10 Dohle Bodies Not Reportable 03/24/22 05:10 Pelger-Huet Anomaly Not Reportable 03/24/22 05:10 Nadine Rods Not Reportable 03/24/22 05:10 Platelet Estimate Consistent w auto 03/24/22 05:10 Clumped Platelets Not Reportable 03/24/22 05:10 Plt Clumps, EDTA Not Reportable 03/24/22 05:10 Large Platelets Not Reportable 03/24/22 05:10 Giant Platelets Not Reportable 03/24/22 05:10 Platelet Satelliting Not Reportable 03/24/22 05:10 Plt Morphology Comment Not Reportable 03/24/22 05:10 RBC Morphology Not Reportable 03/24/22 05:10 Dimorphic RBCs Not Reportable 03/24/22 05:10 Polychromasia Not Reportable 03/24/22 05:10 Hypochromasia Not Reportable 03/24/22 05:10 Poikilocytosis Not Reportable 03/24/22 05:10 Anisocytosis Not Reportable 03/24/22 05:10 Microcytosis Not Reportable 03/24/22 05:10 Macrocytosis Not Reportable 03/24/22 05:10 Spherocytes Not Reportable 03/24/22 05:10 Pappenheimer Bodies Not Reportable 03/24/22 05:10 Sickle Cells Not Reportable 03/24/22 05:10 Target Cells Not Reportable 03/24/22 05:10 Tear Drop Cells Not Reportable 03/24/22 05:10 Ovalocytes 1+ 03/24/22 05:10 Helmet Cells Not Reportable 03/24/22 05:10 Benson-Hatton Bodies Not Reportable 03/24/22 05:10 Gravette Rings Not Reportable 03/24/22 05:10 Malia Cells Not Reportable 03/24/22 05:10 Bite Cells Not Reportable 03/24/22 05:10 Crenated Cell Not Reportable 03/24/22 05:10 Elliptocytes Not Reportable 03/24/22 05:10 Acanthocytes (Spur) Not Reportable 03/24/22 05:10 Rouleaux Not Reportable 03/24/22 05:10 Hemoglobin C Crystals Not Reportable 03/24/22 05:10 Schistocytes Not Reportable 03/24/22 05:10 Malaria parasites Not Reportable 03/24/22 05:10 Elias Bodies Not Reportable 03/24/22 05:10 Hem Pathologist Commnt No 03/24/22 05:10 PT 15.9 Sec. (12.2-14.9) H 03/24/22 08:08 INR 1.14 (0.87-1.13) H 03/24/22 08:08 APTT 69.3 Sec. (24.2-36.6) H* 03/24/22 08:08 D-Dimer 1197.36 ng/mlDDU (0-234) H 03/24/22 08:08 Sodium 146 mmol/L (137-145) H 03/24/22 08:08 Potassium 3.4 mmol/L (3.6-5.0) L 03/24/22 08:08 Chloride 121.2 mmol/L (98-107) H 03/24/22 08:08 Carbon Dioxide 16 mmol/L (22-30) L 03/24/22 08:08 Anion Gap 12 mmol/L 03/24/22 08:08 BUN 20 mg/dL (9-20) 03/24/22 08:08 Creatinine 1.2 mg/dL (0.8-1.3) 03/24/22 08:08 Estimated GFR > 60 ml/min 03/24/22 08:08 BUN/Creatinine Ratio 17 % 03/24/22 08:08 Glucose 80 mg/dL (75-100) 03/24/22 08:08 POC Glucose 105 mg/dL (70-105) 03/24/22 20:59 Calcium 7.1 mg/dL (8.4-10.2) L D 03/24/22 08:08 Magnesium 2.30 mg/dL (1.7-2.3) 03/24/22 05:10 Total Bilirubin 1.30 mg/dL (0.1-1.2) H 03/24/22 05:10 AST 17 units/L (5-40) 03/24/22 05:10 ALT 10 units/L (7-56) 03/24/22 05:10 Alkaline Phosphatase 70 units/L (35-129) 03/24/22 05:10 Ammonia 14.0 umol/L (25-60) L 03/24/22 05:10 Total Creatine Kinase 189 units/L (55-170) H 03/25/22 00:28 CK-MB (CK-2) 3.8 ng/mL (0.0-4.0) 03/25/22 00:28 CK-MB (CK-2) Rel Index 2.0 (0-4) 03/25/22 00:28 Troponin T 0.025 ng/mL (0.00-0.029) 03/25/22 00:28 Total Protein 7.3 g/dL (6.3-8.2) 03/24/22 05:10 Albumin 4.1 g/dL (3.9-5) 03/24/22 05:10 Albumin/Globulin Ratio 1.3 % 03/24/22 05:10 Triglycerides 122 mg/dL (2-149) 03/24/22 05:10 Cholesterol 195 mg/dL (50-199) 03/24/22 05:10 LDL Cholesterol Direct 124 mg/dL (50-130) 03/24/22 05:10 HDL Cholesterol 40 mg/dL (40-59) 03/24/22 05:10 Cholesterol/HDL Ratio 4.87 % 03/24/22 05:10 TSH 2.580 mlU/mL (0.270-4.200) 03/24/22 05:10 Urine Color Straw (Yellow) 03/24/22 08:21 Urine Turbidity Cloudy (Clear) 03/24/22 08:21 Urine pH 6.0 (5.0-7.0) 03/24/22 08:21 Ur Specific [place] 1.025 (1.003-1.030) 03/24/22 08:21 Urine Protein 30 mg/dl mg/dL (Negative) 03/24/22 08:21 Urine Glucose (UA) Negative mg/dL (Negative) 03/24/22 08:21 Urine Ketones Negative mg/dL (Negative) 03/24/22 08:21 Urine Blood Moderate (Negative) A 03/24/22 08:21 Urine Nitrite Positive (Negative) 03/24/22 08:21 Ur Reducing Substances Not Reportable 03/24/22 08:21 Urine Bilirubin Negative (Negative) 03/24/22 08:21 Urine Ictotest Not Reportable 03/24/22 08:21 Urine Urobilinogen < 2.0 mg/dL (<2.0) 03/24/22 08:21 Ur Leukocyte Esterase Moderate (Negative) 03/24/22 08:21 Urine WBC (Auto) 143.0 /HPF (0.0-6.0) H 03/24/22 08:21 Urine RBC (Auto) 10.0 /HPF (0.0-6.0) 03/24/22 08:21 U Epithel Cells (Auto) 7.0 /HPF (0-13.0) 03/24/22 08:21 Urine Bacteria (Auto) 4+ /HPF (Negative) 03/24/22 08:21 Urine Mucus 3+ /HPF 03/24/22 08:21 Salicylates < 0.3 mg/dL (2.8-20.0) L 03/24/22 05:10 Acetaminophen < 5.0 ug/mL (10.0-30.0) L 03/24/22 05:10 Plasma/Serum Alcohol < 0.01 % (0-0.07) 03/24/22 05:10 Myrick/IV: Voiding Method Incontinent Active Medications - Current Medications Current Medications: Generic Name Dose Route Start Last Admin Trade Name Freq PRN Reason Stop Dose Admin Acetaminophen 650 mg 03/24/22 10:00 Acetaminophen 650 Mg Rect Supp MN Q6H PRN Pain, Mild (1-3) Amlodipine Besylate 10 mg 03/24/22 10:00 03/24/22 11:21 Amlodipine 10 Mg Tab PO 10 mg QDAY [facility] Administration Dextrose 50 ml 03/24/22 10:00 Dextrose 50% In Water (25gm) 50 Ml Syringe IV Q30MIN PRN Hypoglycemia Protocol Famotidine 20 mg 03/24/22 10:00 03/24/22 22:17 Famotidine 20 Mg/2 Ml Inj IV Not Given BID [facility]ERTY Haloperidol Lactate 2 mg 03/24/22 10:00 Haloperidol Lactate 10 Mg/5 Ml Oral Liqd PO Q6H PRN Agitation Heparin Sodium (Porcine) 5,000 unit 03/24/22 14:00 03/25/22 05:01 Heparin 5,000 Unit/1 Ml Vial SUB-Q 5,000 unit Q8HR [facility]ERTY Administration Hyoscyamine 0.125 mg 03/24/22 10:00 Hyoscyamine Subl 0.125 Mg Tab SL Q4H PRN Spasms Dextrose/Sodium Chloride 1,000 mls @ 75 mls/hr 03/24/22 09:00 03/25/22 03:19 D5ns IV 75 mls/hr DIRECT LIBERTY Administration Cefepime HCl 2 gm in 100 mls @ 200 mls/hr 03/25/22 08:00 Cefepime/Ns 2 Gm/100 Ml IV Q12H [facility] Protocol Insulin Human Lispro 0 unit 03/24/22 11:30 03/24/22 22:16 Insulin Lispro 100 Unit/Ml SUB-Q Not Given ACHS [facility] Protocol Lorazepam 0.5 mg 03/24/22 19:50 Lorazepam 2 Mg/Ml Vial IV Q4H PRN Agitation Naloxone HCl 0.1 mg 03/24/22 08:45 Naloxone 0.4 Mg/1 Ml Inj IV Q2MIN PRN Res Rate </= 8 or 02 SAT < 92% Ondansetron HCl 4 mg 03/24/22 08:45 Ondansetron 4 Mg/2 Ml Inj IV Q8H PRN Nausea And Vomiting Oxycodone/Acetaminophen 1 tab 03/24/22 08:45 Oxycodone /Acetaminophen 5-325mg Tab PO Q6H PRN Pain, Moderate (4-6) Promethazine HCl 25 mg 03/24/22 10:00 Promethazine 25 Mg Tab PO Q6H PRN Nausea And Vomiting Quetiapine Fumarate 50 mg 03/24/22 22:00 03/24/22 22:15 Quetiapine 25 Mg Tab PO 50 mg QHS [facility] Administration Senna 8.6 mg 03/24/22 10:00 03/24/22 22:15 Sennosides 8.6 Mg Tab PO 8.6 mg Q12HR [facility] Administration Sertraline HCl 100 mg 03/24/22 10:00 03/24/22 11:21 Sertraline 100 Mg Tab PO 100 mg QDAY [facility] Administration Sodium Chloride 10 ml 03/24/22 10:00 03/24/22 22:18 Sodium Chloride 0.9% 10 Ml Flush Syringe IV 10 ml BID [facility] Administration Sodium Chloride 10 ml 03/24/22 09:00 Sodium Chloride 0.9% 10 Ml Flush Syringe IV PRN PRN LINE FLUSH Temazepam 15 mg 03/24/22 22:00 03/24/22 22:15 Temazepam 15 Mg Cap PO 15 mg QHS LIBERTY Administration Nutrition/Malnutrition Assess - Dietary Evaluation Nutrition/Malnutrition Findings: Nutrition Notes Start: 03/24/22 12:14 Freq: Status: Active Protocol: Document 03/24/22 12:14 VINAY (Rec: 03/24/22 12:34 VINAY [email or web address]) Nutrition Notes Need for Assessment generated from: MD Order Initial or Follow up Assessment Current Diagnosis Diabetes Other Pertinent Diagnosis Metabolic Acidosis, Syncope, Falls, Dementia, Leukopenia, Debility. Current Diet Cardiac Diet (since B 03/24). Labs/Tests 03/24: Na 146, K 3.4, Cl 121.2 , CO2 16, Ca 7.1. Pertinent Medications 03/24: Nutritionally unremarkable. Height 6 ft 2 in Weight 90.718 kg [place] Body Weight (kg) 86.36 BMI 25.7 Weight change and time frame None provided at admission. Weight Status Appropriate Subjective/Other Information RD consult for Poor Oral Intake assessment. No reports available on Pt's PO intake of meals at thge time, will assess at F/U. Pt is on Room Air, O2 saturation @ 99%, according to Vital Signs notes. Pt stastes having poor appetite and diminished PO intake of meals during the last week, according to History & Phisical notes. Pt requires assisstance with his ADLs, according to History & Phisical notes. Pt lives at home with family, according to History & Phisical notes. Percent of energy/protein needs met: Prescribed Cardiac Diet provides for energy/protein needs (2,230 Kcal/85 g) during LOS. 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 Is patient on ventilator? No Is Patient Ambulatory and/or Out of Bed Yes REE-([facility]-ambulatory/OOB) [ 2154.009 [id number]] Calculation Used for Recommendations [facility] Additional Notes Protein: 1-1.2 g/Kg ABW; 91- 109 g/day. Fluids: 1 ml/Kcal, or as per MD. Nutrition Intervention Change Diet Order: Continue Cardiac Diet as tolerated. Follow-Up By: 03/31/22 Additional Comments Continue monitoring food tolerance, %PO intake of meals , and BM.
[2022-03-25 07:55] LABS: Hematocrit 34.3 % (35.5-45.6); Hemoglobin 11.2 gm/dl (11.8-15.2); Mean Corpuscular HGB Conc 33 % (32-34); Mean Corpuscular Volume 87 fl (84-94); Platelet Count 130 K/mm3 (140-440); Red Blood Count 3.94 M/mm3 (3.65-5.03); Red Cell Distribution Width 14.5 % (13.2-15.2)
[2022-03-25 08:37] LABS: Alanine Aminotransferase 9 units/L (7-56); Albumin 3.7 g/dL (3.9-5); BUN/Creatinine Ratio 15; Blood Urea Nitrogen 17 mg/dL (9-20); Calcium 8.9 mg/dL (8.4-10.2); Hemolysis Index 13
[2022-03-25] MEDS: INSULIN LISPRO 100 UNIT/ML SUB-Q SCH ×4 (08:57→21:27)
[2022-03-25] MEDS: CEFEPIME/NS 2 GM/100 ML 2 GM/100 ML BAG IV SCH (08:57)
--- NOTE | 2022-03-25 09:37 | Cat Scan Report ---
CT ABDOMEN AND PELVIS WITHOUT CONTRAST INDICATION / CLINICAL INFORMATION: hematuria. TECHNIQUE: Axial CT images were obtained through the abdomen and pelvis without IV contrast. Sagittal and arnold l reformatted images. All CT scans at this location are performed using CT dose reduction for ALARA b y means of automated exposure control. COMPARISON: None available. FINDINGS: LOWER CHEST: No significant abnormality. LIVER: No significant abnormality. GALLBLADDER: No significant abnormality. BILE DUCTS: No significant abnormality. PANCREAS: No significant abnormality. SPLEEN: No significant abnormality. ADRENALS: No significant abnormality. RIGHT KIDNEY and URETER: 3 cm cyst at the superior pole. 3.5 cm cyst at the lower pole. No evidence f or solid mass, nephrolithiasis or hydronephrosis. LEFT KIDNEY and URETER: 1.5 cm cyst at the upper pole, otherwise unremarkable. STOMACH and SMALL BOWEL: No significant abnormality. COLON: No significant abnormality. APPENDIX: No significant abnormality. PERITONEUM: No free fluid. No free air. No fluid collection. LYMPH NODES: No significant adenopathy. AORTA and ARTERIES: No significant abnormality. IVC and VEINS: No significant abnormality. URINARY BLADDER: Mild diffuse bladder wall thickening is suggested which could represent a nonspecifi c cystitis. No bladder stone or filling defect. REPRODUCTIVE ORGANS: No significant abnormality. ADDITIONAL FINDINGS: None. SKELETAL SYSTEM: Moderate thoracolumbar spondylosis. Nothing acute. IMPRESSION: Bilateral simple appearing renal cysts as described. No evidence for nephrolithiasis or hydronephrosi s. Mild diffuse bladder wall thickening is suggested which could represent cystitis or trabeculation. Signer Name: Damien Orozco Jr, MD Signed: 03/25/2022 9:32 AM Workstation Name: [id number]
--- NOTE | 2022-03-25 10:10 | Vascular Lab Report ---
DUPLEX DOPPLER LOWER EXTREMITY VEINS, BILATERAL INDICATION: DVT. Bilateral lower extremity swelling TECHNIQUE: Duplex doppler imaging was performed through the veins of both lower extremities using ve nous compression and other maneuvers. COMPARISON: No relevant prior imaging study available. FINDINGS: Right Common femoral vein: Negative. Right Superficial femoral vein: Negative. Right Popliteal vein: Negative. Right Calf veins: Negative. Left Common femoral vein: Negative. Left Superficial femoral vein: Negative. Left Popliteal vein: Negative. Left Calf veins: Negative. Additional findings: There is diffuse subcutaneous edema bilaterally.. IMPRESSION: No sonographic evidence for DVT in either lower extremity. Signer Name: Damien Orozco Jr, MD Signed: 03/25/2022 10:06 AM Workstation Name: [id number]
[2022-03-25] MEDS: SENNOSIDES 8.6 MG TAB PO SCH ×2 (10:25→21:27)
[2022-03-25] MEDS: amLODIPine 10 MG TAB PO SCH (10:25)
[2022-03-25] MEDS: SERTRALINE 100 MG TAB PO SCH (10:25)
[2022-03-25] MEDS: FAMOTIDINE 20 MG/2 ML INJ IV SCH (10:26)
[2022-03-25] MEDS: FAMOTIDINE 20 MG TAB PO SCH ×2 (14:23→21:27)
[2022-03-25] MEDS: QUEtiapine 25 MG TAB PO SCH (21:27)
[2022-03-25] MEDS: TEMAZEPAM 15 MG CAP PO SCH (21:27)
[2022-03-26] MEDS: HEPARIN 5,000 UNIT/1 ML VIAL SUB-Q SCH ×3 (05:20→21:49)
[2022-03-26] MEDS: D5W/0.9% NACL 1,000 ML IV SCH ×2 (05:21→19:24)
--- NOTE | 2022-03-26 07:26 | Progress Note ---
Assessment and Plan Assessment and plan: Patient is 86-year-old male with history of dementia and benign prostatic hypertrophy. Patient brought to the emergency room via EMS from home for evaluation of altered mental status. Patient daughter at bedside and giving the story. She stated that he went to the bathroom around 4 AM and when she went back to check on him she found him leaning on the toilet backwards and not breathing. Patient daughter stated that she immediately called 911 and approximately 5 minutes later she saw him moving his left upper extremity. Upon arrival to the ER patient was agitated and required restraint. Patient is moving all his extremities no facial droop was noticed. Stroke scale was 0. Information about this as obtained from the ER physician. Discussed with the family who at the bedside etiology the patient has been with repeated falls which has been worse in the last few weeks. He is known to fall once a week but dialysis day daily occurrence. He was in hospice but there is discussion about transferring him to another hospital as a result he had revoked the previous hospice. They do understand that his dementia is progressive. When I asked if they wanted a full work-up on him they were undecided about this. Intubated they would like him evaluated for syncopal episode that he experienced and also the repeated falls. They also reported that he has not been eating as much as he normally does he would have an issue every now and then according to the family. The last week has actually had very poor appetite. He is assisted for all toileting activities. Work-up in the ER showed mildly elevated troponin which could be attributed to the elevated creatinine and nevertheless he also had a significantly elevated D-dimer. 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 NO Respiratory distress. CTAP due to hematuria which could be secondary to UTI Obtain Urine culture. Patient remains in restraints secondary to encephalopathy. ECHO obtained shows an EF of 65% with no left heart strain. Will recommend an outpatient event monitor and if patient declines hospice PT/OT Replace electrolytes Case management consult for assistance with possible Hospice transition Patient needs assist with ADL Family understands that patients condition is likely progressing Sliding scale Fall precautions DVT/GI PROPHY ADVANCE CARE PLANNING DISCUSSED FOR 35 MINS Discussed with case management to begin hospice and placement a referral. History Interval history: Patient seen and examined remains confused. Overnight patient was noted to be combative which resulted to imaging studies ordered not being obtained. Emotional why this was not communicated to the patient cannot get some COVID medications. Hospitalist Physical - Physical exam Narrative exam: VITAL SIGNS: Reviewed. GENERAL: The patient appears normally developed, otherwise in position vital signs as documented. HEAD: No signs of head trauma. EYES: Pupils are equal. Extraocular motions intact. EARS: Hearing grossly intact. MOUTH: Oropharynx is normal. NECK: No adenopathy, no JVD. CHEST: Chest with clear breath sounds bilaterally. No wheezes, rales, or rhonchi. CARDIAC: Regular rate and rhythm. S1 and S2, without murmurs, gallops, or rubs. VASCULAR: No Edema. Peripheral pulses normal and equal in all extremities. ABDOMEN: Soft, non tender and non distended. No rebound or guarding, and no masses palpated. Bowel Sounds normal. MUSCULOSKELETAL: Good range of motion of all major joints. Extremities without clubbing, cyanosis or edema. NEUROLOGIC EXAM: Alert and oriented x person only no focal sensory or strength deficits. Speech much improved compared to yesterday but 1 word syllable. Follows some commands. PSYCHIATRIC: Mood agitated SKIN: detail exam as documented in skin assessment - Constitutional Vitals: Temp Pulse Resp BP Pulse Ox 98.4 F 67 20 100/65 93 03/26/22 03:50 03/26/22 03:50 03/26/22 03:50 03/26/22 03:50 03/26/22 03:50 HEART Score - HEART Score Troponin: Troponin T 0.025 ng/mL (0.00-0.029) 03/25/22 00:28 Results - Labs CBC & Chem 7: 03/25/22 07:36 03/25/22 07:36 Labs: Laboratory Last Values WBC 2.1 K/mm3 (4.5-11.0) L 03/25/22 07:36 RBC 3.94 M/mm3 (3.65-5.03) 03/25/22 07:36 Hgb 11.2 gm/dl (11.8-15.2) L 03/25/22 07:36 Hct 34.3 % (35.5-45.6) L 03/25/22 07:36 MCV 87 fl (84-94) 03/25/22 07:36 MCH 28 pg (28-32) 03/25/22 07:36 MCHC 33 % (32-34) 03/25/22 07:36 RDW 14.5 % (13.2-15.2) 03/25/22 07:36 Plt Count 130 K/mm3 (140-440) L 03/25/22 07:36 Add Manual Diff Complete 03/24/22 05:10 Total Counted 100 03/24/22 05:10 Seg Neuts % (Manual) 77.0 % (40.0-70.0) H 03/24/22 05:10 Band Neutrophils % 0 % 03/24/22 05:10 Lymphocytes % (Manual) 21.0 % (13.4-35.0) 03/24/22 05:10 Reactive Lymphs % (Man) 0 % 03/24/22 05:10 Monocytes % (Manual) 1.0 % (0.0-7.3) 03/24/22 05:10 Eosinophils % (Manual) 1.0 % (0.0-4.3) 03/24/22 05:10 Basophils % (Manual) 0 % (0.0-1.8) 03/24/22 05:10 Metamyelocytes % 0 % 03/24/22 05:10 Myelocytes % 0 % 03/24/22 05:10 Promyelocytes % 0 % 03/24/22 05:10 Blast Cells % 0 % 03/24/22 05:10 Nucleated RBC % Not Reportable 03/24/22 05:10 Seg Neutrophils # Man 2.4 K/mm3 (1.8-7.7) 03/24/22 05:10 Band Neutrophils # 0.0 K/mm3 03/24/22 05:10 Lymphocytes # (Manual) 0.7 K/mm3 (1.2-5.4) L 03/24/22 05:10 Abs React Lymphs (Man) 0.0 K/mm3 03/24/22 05:10 Monocytes # (Manual) 0.0 K/mm3 (0.0-0.8) 03/24/22 05:10 Eosinophils # (Manual) 0.0 K/mm3 (0.0-0.4) 03/24/22 05:10 Basophils # (Manual) 0.0 K/mm3 (0.0-0.1) 03/24/22 05:10 Metamyelocytes # 0.0 K/mm3 03/24/22 05:10 Myelocytes # 0.0 K/mm3 03/24/22 05:10 Promyelocytes # 0.0 K/mm3 03/24/22 05:10 Blast Cells # 0.0 K/mm3 03/24/22 05:10 WBC Morphology Not Reportable 03/24/22 05:10 Hypersegmented Neuts Not Reportable 03/24/22 05:10 Hyposegmented Neuts Not Reportable 03/24/22 05:10 Hypogranular Neuts Not Reportable 03/24/22 05:10 Smudge Cells Not Reportable 03/24/22 05:10 Toxic Granulation Not Reportable 03/24/22 05:10 Toxic Vacuolation Not Reportable 03/24/22 05:10 Dohle Bodies Not Reportable 03/24/22 05:10 Pelger-Huet Anomaly Not Reportable 03/24/22 05:10 Nadine Rods Not Reportable 03/24/22 05:10 Platelet Estimate Consistent w auto 03/24/22 05:10 Clumped Platelets Not Reportable 03/24/22 05:10 Plt Clumps, EDTA Not Reportable 03/24/22 05:10 Large Platelets Not Reportable 03/24/22 05:10 Giant Platelets Not Reportable 03/24/22 05:10 Platelet Satelliting Not Reportable 03/24/22 05:10 Plt Morphology Comment Not Reportable 03/24/22 05:10 RBC Morphology Not Reportable 03/24/22 05:10 Dimorphic RBCs Not Reportable 03/24/22 05:10 Polychromasia Not Reportable 03/24/22 05:10 Hypochromasia Not Reportable 03/24/22 05:10 Poikilocytosis Not Reportable 03/24/22 05:10 Anisocytosis Not Reportable 03/24/22 05:10 Microcytosis Not Reportable 03/24/22 05:10 Macrocytosis Not Reportable 03/24/22 05:10 Spherocytes Not Reportable 03/24/22 05:10 Pappenheimer Bodies Not Reportable 03/24/22 05:10 Sickle Cells Not Reportable 03/24/22 05:10 Target Cells Not Reportable 03/24/22 05:10 Tear Drop Cells Not Reportable 03/24/22 05:10 Ovalocytes 1+ 03/24/22 05:10 Helmet Cells Not Reportable 03/24/22 05:10 Benson-Fate Bodies Not Reportable 03/24/22 05:10 [place] Rings Not Reportable 03/24/22 05:10 Malia Cells Not Reportable 03/24/22 05:10 Bite Cells Not Reportable 03/24/22 05:10 Crenated Cell Not Reportable 03/24/22 05:10 Elliptocytes Not Reportable 03/24/22 05:10 Acanthocytes (Spur) Not Reportable 03/24/22 05:10 Rouleaux Not Reportable 03/24/22 05:10 Hemoglobin C Crystals Not Reportable 03/24/22 05:10 Schistocytes Not Reportable 03/24/22 05:10 Malaria parasites Not Reportable 03/24/22 05:10 Elias Bodies Not Reportable 03/24/22 05:10 Hem Pathologist Commnt No 03/24/22 05:10 PT 15.9 Sec. (12.2-14.9) H 03/24/22 08:08 INR 1.14 (0.87-1.13) H 03/24/22 08:08 APTT 69.3 Sec. (24.2-36.6) H* 03/24/22 08:08 D-Dimer 1197.36 ng/mlDDU (0-234) H 03/24/22 08:08 Sodium 145 mmol/L (137-145) 03/25/22 07:36 Potassium 3.5 mmol/L (3.6-5.0) L 03/25/22 07:36 Chloride 114.7 mmol/L (98-107) H 03/25/22 07:36 Carbon Dioxide 18 mmol/L (22-30) L 03/25/22 07:36 Anion Gap 16 mmol/L 03/25/22 07:36 BUN 17 mg/dL (9-20) 03/25/22 07:36 Creatinine 1.1 mg/dL (0.8-1.3) 03/25/22 07:36 Estimated GFR > 60 ml/min 03/25/22 07:36 BUN/Creatinine Ratio 15 % 03/25/22 07:36 Glucose 104 mg/dL (75-100) H 03/25/22 07:36 POC Glucose 112 mg/dL (70-105) H 03/25/22 21:23 Calcium 8.9 mg/dL (8.4-10.2) D 03/25/22 07:36 Magnesium 2.30 mg/dL (1.7-2.3) 03/24/22 05:10 Total Bilirubin 1.00 mg/dL (0.1-1.2) 03/25/22 07:36 AST 13 units/L (5-40) 03/25/22 07:36 ALT 9 units/L (7-56) 03/25/22 07:36 Alkaline Phosphatase 58 units/L (35-129) 03/25/22 07:36 Ammonia 14.0 umol/L (25-60) L 03/24/22 05:10 Total Creatine Kinase 189 units/L (55-170) H 03/25/22 00:28 CK-MB (CK-2) 3.8 ng/mL (0.0-4.0) 03/25/22 00:28 CK-MB (CK-2) Rel Index 2.0 (0-4) 03/25/22 00:28 Troponin T 0.025 ng/mL (0.00-0.029) 03/25/22 00:28 Total Protein 6.6 g/dL (6.3-8.2) 03/25/22 07:36 Albumin 3.7 g/dL (3.9-5) L 03/25/22 07:36 Albumin/Globulin Ratio 1.3 % 03/25/22 07:36 Triglycerides 122 mg/dL (2-149) 03/24/22 05:10 Cholesterol 195 mg/dL (50-199) 03/24/22 05:10 LDL Cholesterol Direct 124 mg/dL (50-130) 03/24/22 05:10 HDL Cholesterol 40 mg/dL (40-59) 03/24/22 05:10 Cholesterol/HDL Ratio 4.87 % 03/24/22 05:10 TSH 2.580 mlU/mL (0.270-4.200) 03/24/22 05:10 Urine Color Straw (Yellow) 03/24/22 08:21 Urine Turbidity Cloudy (Clear) 03/24/22 08:21 Urine pH 6.0 (5.0-7.0) 03/24/22 08:21 Ur Specific Hunter 1.025 (1.003-1.030) 03/24/22 08:21 Urine Protein 30 mg/dl mg/dL (Negative) 03/24/22 08:21 Urine Glucose (UA) Negative mg/dL (Negative) 03/24/22 08:21 Urine Ketones Negative mg/dL (Negative) 03/24/22 08:21 Urine Blood Moderate (Negative) A 03/24/22 08:21 Urine Nitrite Positive (Negative) 03/24/22 08:21 Ur Reducing Substances Not Reportable 03/24/22 08:21 Urine Bilirubin Negative (Negative) 03/24/22 08:21 Urine Ictotest Not Reportable 03/24/22 08:21 Urine Urobilinogen < 2.0 mg/dL (<2.0) 03/24/22 08:21 Ur Leukocyte Esterase Moderate (Negative) 03/24/22 08:21 Urine WBC (Auto) 143.0 /HPF (0.0-6.0) H 03/24/22 08:21 Urine RBC (Auto) 10.0 /HPF (0.0-6.0) 03/24/22 08:21 U Epithel Cells (Auto) 7.0 /HPF (0-13.0) 03/24/22 08:21 Urine Bacteria (Auto) 4+ /HPF (Negative) 03/24/22 08:21 Urine Mucus 3+ /HPF 03/24/22 08:21 Salicylates < 0.3 mg/dL (2.8-20.0) L 03/24/22 05:10 Acetaminophen < 5.0 ug/mL (10.0-30.0) L 03/24/22 05:10 Plasma/Serum Alcohol < 0.01 % (0-0.07) 03/24/22 05:10 Myrick/IV: Voiding Method Incontinent Active Medications - Current Medications Current Medications: Generic Name Dose Route Start Last Admin Trade Name Freq PRN Reason Stop Dose Admin Acetaminophen 650 mg 03/24/22 10:00 Acetaminophen 650 Mg Rect Supp [place] Q6H PRN Pain, Mild (1-3) Amlodipine Besylate 10 mg 03/24/22 10:00 03/25/22 10:25 Amlodipine 10 Mg Tab PO 10 mg QDAY LIBERTY Administration Dextrose 50 ml 03/24/22 10:00 Dextrose 50% In Water (25gm) 50 Ml Syringe IV Q30MIN PRN Hypoglycemia Protocol Famotidine 20 mg 03/25/22 12:00 03/25/22 21:27 Famotidine 20 Mg Tab PO 20 mg BID LIBERTY Administration Haloperidol Lactate 2 mg 03/24/22 10:00 Haloperidol Lactate 10 Mg/5 Ml Oral Liqd PO Q6H PRN Agitation Heparin Sodium (Porcine) 5,000 unit 03/24/22 14:00 03/26/22 05:20 Heparin 5,000 Unit/1 Ml Vial SUB-Q 5,000 unit Q8HR LIBETRY Administration Hyoscyamine 0.125 mg 03/24/22 10:00 Hyoscyamine Subl 0.125 Mg Tab SL Q4H PRN Spasms Dextrose/Sodium Chloride 1,000 mls @ 75 mls/hr 03/24/22 09:00 03/26/22 05:21 D5ns IV 75 mls/hr DIRECT LIBERTY Administration Cefepime HCl 2 gm in 100 mls @ 200 mls/hr 03/25/22 09:00 03/25/22 08:57 Cefepime/Ns 2 Gm/100 Ml IV 200 mls/hr Q24H LIBERTY Administration Protocol Insulin Human Lispro 0 unit 03/24/22 11:30 03/25/22 21:27 Insulin Lispro 100 Unit/Ml SUB-Q Not Given ACHS LIBERTY Protocol Lorazepam 0.5 mg 03/24/22 19:50 03/25/22 08:28 Lorazepam 2 Mg/Ml Vial IV 0.5 mg Q4H PRN Administration Agitation Naloxone HCl 0.1 mg 03/24/22 08:45 Naloxone 0.4 Mg/1 Ml Inj IV Q2MIN PRN Res Rate </= 8 or 02 SAT < 92% Ondansetron HCl 4 mg 03/24/22 08:45 Ondansetron 4 Mg/2 Ml Inj IV Q8H PRN Nausea And Vomiting Oxycodone/Acetaminophen 1 tab 03/24/22 08:45 Oxycodone /Acetaminophen 5-325mg Tab PO Q6H PRN Pain, Moderate (4-6) Promethazine HCl 25 mg 03/24/22 10:00 Promethazine 25 Mg Tab PO Q6H PRN Nausea And Vomiting Quetiapine Fumarate 50 mg 03/24/22 22:00 03/25/22 21:27 Quetiapine 25 Mg Tab PO 50 mg QHS LIBERTY Administration Senna 8.6 mg 03/24/22 10:00 03/25/22 21:27 Sennosides 8.6 Mg Tab PO 8.6 mg Q12HR LIBERTY Administration Sertraline HCl 100 mg 03/24/22 10:00 03/25/22 10:25 Sertraline 100 Mg Tab PO 100 mg QDAY LIBERTY Administration Sodium Chloride 10 ml 03/24/22 10:00 03/25/22 21:28 Sodium Chloride 0.9% 10 Ml Flush Syringe IV 10 ml BID LIBERTY Administration Sodium Chloride 10 ml 03/24/22 09:00 Sodium Chloride 0.9% 10 Ml Flush Syringe IV PRN PRN LINE FLUSH Temazepam 15 mg 03/24/22 22:00 03/25/22 21:27 Temazepam 15 Mg Cap PO 15 mg QHS LIBERTY Administration Nutrition/Malnutrition Assess - Dietary Evaluation Nutrition/Malnutrition Findings: Nutrition Notes Start: 03/24/22 12:14 Freq: Status: Active Protocol: Document 03/24/22 12:14 VINAY (Rec: 03/24/22 12:34 VINAY [id number]) Nutrition Notes Need for Assessment generated from: MD Order Initial or Follow up Assessment Current Diagnosis Diabetes Other Pertinent Diagnosis Metabolic Acidosis, Syncope, Falls, Dementia, Leukopenia, Debility. Current Diet Cardiac Diet (since B 03/24). Labs/Tests 03/24: Na 146, K 3.4, Cl 121.2 , CO2 16, Ca 7.1. Pertinent Medications 03/24: Nutritionally unremarkable. Height 6 ft 2 in Weight 90.718 kg [place] Body Weight (kg) 86.36 BMI 25.7 Weight change and time frame None provided at admission. Weight Status Appropriate Subjective/Other Information RD consult for Poor Oral Intake assessment. No reports available on Pt's PO intake of meals at thge time, will assess at F/U. Pt is on Room Air, O2 saturation @ 99%, according to Vital Signs notes. Pt stastes having poor appetite and diminished PO intake of meals during the last week, according to History & Phisical notes. Pt requires assisstance with his ADLs, according to History & Phisical notes. Pt lives at home with family, according to History & Phisical notes. Percent of energy/protein needs met: Prescribed Cardiac Diet provides for energy/protein needs (2,230 Kcal/85 g) during LOS. Burn Absent Trauma Absent GI Symptoms None Food Allergy No Minimum of two criteria No Fluid Accumulation N/A Reduced Grid Operator Strength N/A (non-severe) Protein-Calorie Malnutrition N\A #1 Nutrition Diagnosis No nutrition diagnosis at this time Comments: Will assess Pt's PO intake of meals and need for ONS at F/U. Is patient on ventilator? No Is Patient Ambulatory and/or Out of Bed Yes REE-([facility]-ambulatory/OOB) [ [id number] [id number]] Calculation Used for Recommendations [facility] Additional Notes Protein: 1-1.2 g/Kg ABW; 91- 109 g/day. Fluids: 1 ml/Kcal, or as per MD. Nutrition Intervention Change Diet Order: Continue Cardiac Diet as tolerated. Follow-Up By: 03/31/22 Additional Comments Continue monitoring food tolerance, %PO intake of meals , and BM.
[2022-03-26] MEDS: INSULIN LISPRO 100 UNIT/ML SUB-Q SCH ×4 (09:56→21:49)
[2022-03-26] MEDS: FAMOTIDINE 20 MG TAB PO SCH ×2 (10:45→21:49)
[2022-03-26] MEDS: CEFEPIME/NS 2 GM/100 ML 2 GM/100 ML BAG IV SCH (10:45)
[2022-03-26] MEDS: amLODIPine 10 MG TAB PO SCH (10:45)
[2022-03-26] MEDS: SENNOSIDES 8.6 MG TAB PO SCH ×2 (10:45→21:49)
[2022-03-26] MEDS: SERTRALINE 100 MG TAB PO SCH (10:45)
--- NOTE | 2022-03-26 19:27 | Cat Scan Report ---
CTA CHEST WITH CONTRAST INDICATION / CLINICAL INFORMATION: ELEVATED D.DIMER. Altered mental status. TECHNIQUE: Axial CT images were obtained through the chest after injection of 100 mL Omnipaque 350 IV contrast. 3 plane MIP and/or 3D reconstructions were produced. All CT scans at this location are per formed using CT dose reduction for ALARA by means of automated exposure control. COMPARISON: None available. FINDINGS: PULMONARY EMBOLUS: None. THORACIC AORTA: Mild atherosclerotic calcification without acute abnormality. HEART: Mildly enlarged. CORONARY ARTERY CALCIFICATION: Absent -- None. MEDIASTINUM / KEVIN: No significant abnormality. PLEURA: No pleural effusion. No pneumothorax. LUNGS: No acute air space or interstitial disease. ADDITIONAL FINDINGS: None. UPPER ABDOMEN: No acute findings. SKELETAL STRUCTURES: No significant osseous abnormality. IMPRESSION: 1. No CT evidence for pulmonary embolism. 2. No acute pulmonary or pleural findings. Signer Name: Ignacio Ching MD Signed: 03/26/2022 7:22 PM Workstation Name: [id number]
[2022-03-26] MEDS: QUEtiapine 25 MG TAB PO SCH (21:49)
[2022-03-26] MEDS: TEMAZEPAM 15 MG CAP PO SCH (21:49)
[2022-03-27] MEDS: HEPARIN 5,000 UNIT/1 ML VIAL SUB-Q SCH ×3 (05:26→21:34)
[2022-03-27 06:42] LABS: BUN/Creatinine Ratio 8; Blood Urea Nitrogen 8 mg/dL (9-20); Calcium 8.7 mg/dL (8.4-10.2); Hemolysis Index 0
--- NOTE | 2022-03-27 07:51 | Progress Note ---
Assessment and Plan Assessment and plan: Patient is 86-year-old male with history of dementia and benign prostatic hypertrophy. Patient brought to the emergency room via EMS from home for evaluation of altered mental status. Patient daughter at bedside and giving the story. She stated that he went to the bathroom around 4 AM and when she went back to check on him she found him leaning on the toilet backwards and not breathing. Patient daughter stated that she immediately called 911 and approximately 5 minutes later she saw him moving his left upper extremity. Upon arrival to the ER patient was agitated and required restraint. Patient is moving all his extremities no facial droop was noticed. Stroke scale was 0. Information about this as obtained from the ER physician. Discussed with the family who at the bedside etiology the patient has been with repeated falls which has been worse in the last few weeks. He is known to fall once a week but dialysis day daily occurrence. He was in hospice but there is discussion about transferring him to another hospital as a result he had revoked the previous hospice. They do understand that his dementia is progressive. When I asked if they wanted a full work-up on him they were undecided about this. Intubated they would like him evaluated for syncopal episode that he experienced and also the repeated falls. They also reported that he has not been eating as much as he normally does he would have an issue every now and then according to the family. The last week has actually had very poor appetite. He is assisted for all toileting activities. Work-up in the ER showed mildly elevated troponin which could be attributed to the elevated creatinine and nevertheless he also had a significantly elevated D-dimer. 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 NO Respiratory distress. CTAP due to hematuria which could be secondary to UTI 03/27: Patient remains clinically stable confusion appears to be his baseline due to advanced dementia and does not need restraints but a sitter if possible. Patient is clinically stable to be discharged possibly in a.m. when hospice is arranged. Still waiting on urine culture however patient has been on antibiotics preemptively. A CTA of the chest was done negative for pulmonary embolism. Obtain Urine culture. Patient remains in restraints secondary to encephalopathy. ECHO obtained shows an EF of 65% with no left heart strain. Will recommend an outpatient event monitor and if patient declines hospice PT/OT Replace electrolytes Case management consult for assistance with possible Hospice transition Patient needs assist with ADL Family understands that patients condition is likely progressing Sliding scale Fall precautions DVT/GI PROPHY ADVANCE CARE PLANNING DISCUSSED FOR 35 MINS Discussed with case management to begin hospice and placement a referral. History Interval history: Patient seen and examined remains confused. Remains on restraints. Hospitalist Physical - Physical exam Narrative exam: VITAL SIGNS: Reviewed. GENERAL: The patient appears normally developed, otherwise in position vital signs as documented. HEAD: No signs of head trauma. EYES: Pupils are equal. Extraocular motions intact. EARS: Hearing grossly intact. MOUTH: Oropharynx is normal. NECK: No adenopathy, no JVD. CHEST: Chest with clear breath sounds bilaterally. No wheezes, rales, or rhonchi. CARDIAC: Regular rate and rhythm. S1 and S2, without murmurs, gallops, or rubs. VASCULAR: No Edema. Peripheral pulses normal and equal in all extremities. ABDOMEN: Soft, non tender and non distended. No rebound or guarding, and no masses palpated. Bowel Sounds normal. MUSCULOSKELETAL: Good range of motion of all major joints. Extremities without clubbing, cyanosis or edema. NEUROLOGIC EXAM: Alert and oriented x person only no focal sensory or strength deficits. Speech much improved compared to yesterday but 1 word syllable. Follows some commands. PSYCHIATRIC: Mood agitated SKIN: detail exam as documented in skin assessment - Constitutional Vitals: Temp Pulse Resp BP Pulse Ox 98.6 F 76 18 140/76 99 03/26/22 12:34 03/26/22 22:00 03/26/22 12:34 03/26/22 12:34 03/27/22 01:29 HEART Score - HEART Score Troponin: Troponin T 0.025 ng/mL (0.00-0.029) 03/25/22 00:28 Results - Labs CBC & Chem 7: 03/25/22 07:36 03/27/22 05:48 Labs: Laboratory Last Values WBC 2.1 K/mm3 (4.5-11.0) L 03/25/22 07:36 RBC 3.94 M/mm3 (3.65-5.03) 03/25/22 07:36 Hgb 11.2 gm/dl (11.8-15.2) L 03/25/22 07:36 Hct 34.3 % (35.5-45.6) L 03/25/22 07:36 MCV 87 fl (84-94) 03/25/22 07:36 MCH 28 pg (28-32) 03/25/22 07:36 MCHC 33 % (32-34) 03/25/22 07:36 RDW 14.5 % (13.2-15.2) 03/25/22 07:36 Plt Count 130 K/mm3 (140-440) L 03/25/22 07:36 Add Manual Diff Complete 03/24/22 05:10 Total Counted 100 03/24/22 05:10 Seg Neuts % (Manual) 77.0 % (40.0-70.0) H 03/24/22 05:10 Band Neutrophils % 0 % 03/24/22 05:10 Lymphocytes % (Manual) 21.0 % (13.4-35.0) 03/24/22 05:10 Reactive Lymphs % (Man) 0 % 03/24/22 05:10 Monocytes % (Manual) 1.0 % (0.0-7.3) 03/24/22 05:10 Eosinophils % (Manual) 1.0 % (0.0-4.3) 03/24/22 05:10 Basophils % (Manual) 0 % (0.0-1.8) 03/24/22 05:10 Metamyelocytes % 0 % 03/24/22 05:10 Myelocytes % 0 % 03/24/22 05:10 Promyelocytes % 0 % 03/24/22 05:10 Blast Cells % 0 % 03/24/22 05:10 Nucleated RBC % Not Reportable 03/24/22 05:10 Seg Neutrophils # Man 2.4 K/mm3 (1.8-7.7) 03/24/22 05:10 Band Neutrophils # 0.0 K/mm3 03/24/22 05:10 Lymphocytes # (Manual) 0.7 K/mm3 (1.2-5.4) L 03/24/22 05:10 Abs React Lymphs (Man) 0.0 K/mm3 03/24/22 05:10 Monocytes # (Manual) 0.0 K/mm3 (0.0-0.8) 03/24/22 05:10 Eosinophils # (Manual) 0.0 K/mm3 (0.0-0.4) 03/24/22 05:10 Basophils # (Manual) 0.0 K/mm3 (0.0-0.1) 03/24/22 05:10 Metamyelocytes # 0.0 K/mm3 03/24/22 05:10 Myelocytes # 0.0 K/mm3 03/24/22 05:10 Promyelocytes # 0.0 K/mm3 03/24/22 05:10 Blast Cells # 0.0 K/mm3 03/24/22 05:10 WBC Morphology Not Reportable 03/24/22 05:10 Hypersegmented Neuts Not Reportable 03/24/22 05:10 Hyposegmented Neuts Not Reportable 03/24/22 05:10 Hypogranular Neuts Not Reportable 03/24/22 05:10 Smudge Cells Not Reportable 03/24/22 05:10 Toxic Granulation Not Reportable 03/24/22 05:10 Toxic Vacuolation Not Reportable 03/24/22 05:10 Dohle Bodies Not Reportable 03/24/22 05:10 Pelger-Huet Anomaly Not Reportable 03/24/22 05:10 Nadine Rods Not Reportable 03/24/22 05:10 Platelet Estimate Consistent w auto 03/24/22 05:10 Clumped Platelets Not Reportable 03/24/22 05:10 Plt Clumps, EDTA Not Reportable 03/24/22 05:10 Large Platelets Not Reportable 03/24/22 05:10 Giant Platelets Not Reportable 03/24/22 05:10 Platelet Satelliting Not Reportable 03/24/22 05:10 Plt Morphology Comment Not Reportable 03/24/22 05:10 RBC Morphology Not Reportable 03/24/22 05:10 Dimorphic RBCs Not Reportable 03/24/22 05:10 Polychromasia Not Reportable 03/24/22 05:10 Hypochromasia Not Reportable 03/24/22 05:10 Poikilocytosis Not Reportable 03/24/22 05:10 Anisocytosis Not Reportable 03/24/22 05:10 Microcytosis Not Reportable 03/24/22 05:10 Macrocytosis Not Reportable 03/24/22 05:10 Spherocytes Not Reportable 03/24/22 05:10 Pappenheimer Bodies Not Reportable 03/24/22 05:10 Sickle Cells Not Reportable 03/24/22 05:10 Target Cells Not Reportable 03/24/22 05:10 Tear Drop Cells Not Reportable 03/24/22 05:10 Ovalocytes 1+ 03/24/22 05:10 Helmet Cells Not Reportable 03/24/22 05:10 [place] Bodies Not Reportable 03/24/22 05:10 Embudo Rings Not Reportable 03/24/22 05:10 Waterproof Cells Not Reportable 03/24/22 05:10 Bite Cells Not Reportable 03/24/22 05:10 Crenated Cell Not Reportable 03/24/22 05:10 Elliptocytes Not Reportable 03/24/22 05:10 Acanthocytes (Spur) Not Reportable 03/24/22 05:10 Rouleaux Not Reportable 03/24/22 05:10 Hemoglobin C Crystals Not Reportable 03/24/22 05:10 Schistocytes Not Reportable 03/24/22 05:10 Malaria parasites Not Reportable 03/24/22 05:10 Elias Bodies Not Reportable 03/24/22 05:10 Hem Pathologist Commnt No 03/24/22 05:10 PT 15.9 Sec. (12.2-14.9) H 03/24/22 08:08 INR 1.14 (0.87-1.13) H 03/24/22 08:08 APTT 69.3 Sec. (24.2-36.6) H* 03/24/22 08:08 D-Dimer 1197.36 ng/mlDDU (0-234) H 03/24/22 08:08 Sodium 144 mmol/L (137-145) 03/27/22 05:48 Potassium 3.3 mmol/L (3.6-5.0) L 03/27/22 05:48 Chloride 114.6 mmol/L (98-107) H 03/27/22 05:48 Carbon Dioxide 20 mmol/L (22-30) L 03/27/22 05:48 Anion Gap 13 mmol/L 03/27/22 05:48 BUN 8 mg/dL (9-20) L 03/27/22 05:48 Creatinine 1.0 mg/dL (0.8-1.3) 03/27/22 05:48 Estimated GFR > 60 ml/min 03/27/22 05:48 BUN/Creatinine Ratio 8 % 03/27/22 05:48 Glucose 104 mg/dL (75-100) H 03/27/22 05:48 POC Glucose 92 mg/dL (70-105) 03/27/22 00:15 Calcium 8.7 mg/dL (8.4-10.2) 03/27/22 05:48 Magnesium 2.30 mg/dL (1.7-2.3) 03/24/22 05:10 Total Bilirubin 1.00 mg/dL (0.1-1.2) 03/25/22 07:36 AST 13 units/L (5-40) 03/25/22 07:36 ALT 9 units/L (7-56) 03/25/22 07:36 Alkaline Phosphatase 58 units/L (35-129) 03/25/22 07:36 Ammonia 14.0 umol/L (25-60) L 03/24/22 05:10 Total Creatine Kinase 189 units/L (55-170) H 03/25/22 00:28 CK-MB (CK-2) 3.8 ng/mL (0.0-4.0) 03/25/22 00:28 CK-MB (CK-2) Rel Index 2.0 (0-4) 03/25/22 00:28 Troponin T 0.025 ng/mL (0.00-0.029) 03/25/22 00:28 Total Protein 6.6 g/dL (6.3-8.2) 03/25/22 07:36 Albumin 3.7 g/dL (3.9-5) L 03/25/22 07:36 Albumin/Globulin Ratio 1.3 % 03/25/22 07:36 Triglycerides 122 mg/dL (2-149) 03/24/22 05:10 Cholesterol 195 mg/dL (50-199) 03/24/22 05:10 LDL Cholesterol Direct 124 mg/dL (50-130) 03/24/22 05:10 HDL Cholesterol 40 mg/dL (40-59) 03/24/22 05:10 Cholesterol/HDL Ratio 4.87 % 03/24/22 05:10 TSH 2.580 mlU/mL (0.270-4.200) 03/24/22 05:10 Urine Color Straw (Yellow) 03/24/22 08:21 Urine Turbidity Cloudy (Clear) 03/24/22 08:21 Urine pH 6.0 (5.0-7.0) 03/24/22 08:21 Ur Specific [place] 1.025 (1.003-1.030) 03/24/22 08:21 Urine Protein 30 mg/dl mg/dL (Negative) 03/24/22 08:21 Urine Glucose (UA) Negative mg/dL (Negative) 03/24/22 08:21 Urine Ketones Negative mg/dL (Negative) 03/24/22 08:21 Urine Blood Moderate (Negative) A 03/24/22 08:21 Urine Nitrite Positive (Negative) 03/24/22 08:21 Ur Reducing Substances Not Reportable 03/24/22 08:21 Urine Bilirubin Negative (Negative) 03/24/22 08:21 Urine Ictotest Not Reportable 03/24/22 08:21 Urine Urobilinogen < 2.0 mg/dL (<2.0) 03/24/22 08:21 Ur Leukocyte Esterase Moderate (Negative) 03/24/22 08:21 Urine WBC (Auto) 143.0 /HPF (0.0-6.0) H 03/24/22 08:21 Urine RBC (Auto) 10.0 /HPF (0.0-6.0) 03/24/22 08:21 U Epithel Cells (Auto) 7.0 /HPF (0-13.0) 03/24/22 08:21 Urine Bacteria (Auto) 4+ /HPF (Negative) 03/24/22 08:21 Urine Mucus 3+ /HPF 03/24/22 08:21 Salicylates < 0.3 mg/dL (2.8-20.0) L 03/24/22 05:10 Acetaminophen < 5.0 ug/mL (10.0-30.0) L 03/24/22 05:10 Plasma/Serum Alcohol < 0.01 % (0-0.07) 03/24/22 05:10 Coronavirus (PCR) Negative (Negative) 03/26/22 09:50 Myrick/IV: Voiding Method Incontinent Active Medications - Current Medications Current Medications: Generic Name Dose Route Start Last Admin Trade Name Freq PRN Reason Stop Dose Admin Acetaminophen 650 mg 03/24/22 10:00 Acetaminophen 650 Mg Rect Supp [place] Q6H PRN Pain, Mild (1-3) Amlodipine Besylate 10 mg 03/24/22 10:00 03/26/22 10:45 Amlodipine 10 Mg Tab PO 10 mg QDAY LIBERTY Administration Dextrose 50 ml 03/24/22 10:00 Dextrose 50% In Water (25gm) 50 Ml Syringe IV Q30MIN PRN Hypoglycemia Protocol Famotidine 20 mg 03/25/22 12:00 03/26/22 21:49 Famotidine 20 Mg Tab PO 20 mg BID LIBERTY Administration Haloperidol Lactate 2 mg 03/24/22 10:00 Haloperidol Lactate 10 Mg/5 Ml Oral Liqd PO Q6H PRN Agitation Heparin Sodium (Porcine) 5,000 unit 03/24/22 14:00 03/27/22 05:26 Heparin 5,000 Unit/1 Ml Vial SUB-Q 5,000 unit Q8HR LIBERTY Administration Hyoscyamine 0.125 mg 03/24/22 10:00 Hyoscyamine Subl 0.125 Mg Tab SL Q4H PRN Spasms Dextrose/Sodium Chloride 1,000 mls @ 75 mls/hr 03/24/22 09:00 03/26/22 19:24 D5ns IV 75 mls/hr DIRECT LIBERTY Administration Cefepime HCl 2 gm in 100 mls @ 200 mls/hr 03/25/22 09:00 03/26/22 10:45 Cefepime/Ns 2 Gm/100 Ml IV 200 mls/hr Q24H LIBERTY Administration Protocol Insulin Human Lispro 0 unit 03/24/22 11:30 03/26/22 21:49 Insulin Lispro 100 Unit/Ml SUB-Q Not Given ACHS LIBERTY Protocol Lorazepam 0.5 mg 03/24/22 19:50 03/25/22 08:28 Lorazepam 2 Mg/Ml Vial IV 0.5 mg Q4H PRN Administration Agitation Naloxone HCl 0.1 mg 03/24/22 08:45 Naloxone 0.4 Mg/1 Ml Inj IV Q2MIN PRN Res Rate </= 8 or 02 SAT < 92% Ondansetron HCl 4 mg 03/24/22 08:45 Ondansetron 4 Mg/2 Ml Inj IV Q8H PRN Nausea And Vomiting Oxycodone/Acetaminophen 1 tab 03/24/22 08:45 Oxycodone /Acetaminophen 5-325mg Tab PO Q6H PRN Pain, Moderate (4-6) Promethazine HCl 25 mg 03/24/22 10:00 Promethazine 25 Mg Tab PO Q6H PRN Nausea And Vomiting Quetiapine Fumarate 50 mg 03/24/22 22:00 03/26/22 21:49 Quetiapine 25 Mg Tab PO 50 mg QHS LIBERTY Administration Senna 8.6 mg 03/24/22 10:00 03/26/22 21:49 Sennosides 8.6 Mg Tab PO 8.6 mg Q12HR LIBERTY Administration Sertraline HCl 100 mg 03/24/22 10:00 03/26/22 10:45 Sertraline 100 Mg Tab PO 100 mg QDAY LIBERTY Administration Sodium Chloride 10 ml 03/24/22 10:00 03/26/22 21:49 Sodium Chloride 0.9% 10 Ml Flush Syringe IV 10 ml BID LIBERTY Administration Sodium Chloride 10 ml 03/24/22 09:00 Sodium Chloride 0.9% 10 Ml Flush Syringe IV PRN PRN LINE FLUSH Temazepam 15 mg 03/24/22 22:00 03/26/22 21:49 Temazepam 15 Mg Cap PO 15 mg QHS LIBERTY Administration Nutrition/Malnutrition Assess - Dietary Evaluation Nutrition/Malnutrition Findings: Nutrition Notes Start: 03/24/22 12:14 Freq: Status: Active Protocol: Document 03/24/22 12:14 VINAY (Rec: 03/24/22 12:34 VINAY [id number]) Nutrition Notes Need for Assessment generated from: MD Order Initial or Follow up Assessment Current Diagnosis Diabetes Other Pertinent Diagnosis Metabolic Acidosis, Syncope, Falls, Dementia, Leukopenia, Debility. Current Diet Cardiac Diet (since B 03/24). Labs/Tests 03/24: Na 146, K 3.4, Cl 121.2 , CO2 16, Ca 7.1. Pertinent Medications 03/24: Nutritionally unremarkable. Height 6 ft 2 in Weight 90.718 kg [place] Body Weight (kg) 86.36 BMI 25.7 Weight change and time frame None provided at admission. Weight Status Appropriate Subjective/Other Information RD consult for Poor Oral Intake assessment. No reports available on Pt's PO intake of meals at thge time, will assess at F/U. Pt is on Room Air, O2 saturation @ 99%, according to Vital Signs notes. Pt stastes having poor appetite and diminished PO intake of meals during the last week, according to History & Phisical notes. Pt requires assisstance with his ADLs, according to History & Phisical notes. Pt lives at home with family, according to History & Phisical notes. Percent of energy/protein needs met: Prescribed Cardiac Diet provides for energy/protein needs (2,230 Kcal/85 g) during LOS. Burn Absent Trauma Absent GI Symptoms None Food Allergy No Minimum of two criteria No Fluid Accumulation N/A Reduced Electrical Cad Designer Strength N/A (non-severe) Protein-Calorie Malnutrition N\A #1 Nutrition Diagnosis No nutrition diagnosis at this time Comments: Will assess Pt's PO intake of meals and need for ONS at F/U. Is patient on ventilator? No Is Patient Ambulatory and/or Out of Bed Yes REE-([facility]-ambulatory/OOB) [ 2154.009 [id number]] Calculation Used for Recommendations [facility] Additional Notes Protein: 1-1.2 g/Kg ABW; 91- 109 g/day. Fluids: 1 ml/Kcal, or as per MD. Nutrition Intervention Change Diet Order: Continue Cardiac Diet as tolerated. Follow-Up By: 03/31/22 Additional Comments Continue monitoring food tolerance, %PO intake of meals , and BM.
[2022-03-27] MEDS: SERTRALINE 100 MG TAB PO SCH (09:35)
[2022-03-27] MEDS: amLODIPine 10 MG TAB PO SCH (09:35)
[2022-03-27] MEDS: FAMOTIDINE 20 MG TAB PO SCH ×2 (09:35→21:34)
[2022-03-27] MEDS: D5W/0.9% NACL 1,000 ML IV SCH (09:36)
[2022-03-27] MEDS: CEFEPIME/NS 2 GM/100 ML 2 GM/100 ML BAG IV SCH (09:36)
[2022-03-27] MEDS: SENNOSIDES 8.6 MG TAB PO SCH ×2 (09:36→21:34)
[2022-03-27] MEDS: INSULIN LISPRO 100 UNIT/ML SUB-Q SCH ×4 (09:36→22:00)
[2022-03-27] MEDS ORDERED: POTASSIUM CHLORIDE ER 20 MEQ TAB PO ONE (11:30)
[2022-03-27] MEDS: QUEtiapine 25 MG TAB PO SCH (21:31)
[2022-03-27] MEDS: TEMAZEPAM 15 MG CAP PO SCH (21:34)
[2022-03-28] MEDS: HEPARIN 5,000 UNIT/1 ML VIAL SUB-Q SCH ×2 (05:59→14:14)
[2022-03-28] MEDS: D5W/0.9% NACL 1,000 ML IV SCH (06:01)
--- NOTE | 2022-03-28 08:19 | Discharge Summary ---
Providers - Providers Date of Admission: 03/24/22 08:45 Attending physician: IDRIS VITALE MD 03/24/22 Consult to Case Management [CONS] Routine Services Needed at Discharge: Ecclesiastical Worker Notified:: no Additional Physician Instructions: May be a candidate for hospice 03/24/22 08:46 Consult to Dietitian/Nutrition [CONS] Routine Physician Instructions: may need Tube feed if not eating in 24 hrs Reason For Exam: Reason for Consult: Poor oral intake 03/24/22 08:47 Occupational Therapy Evaluate and Treat [CONS] Routine Comment: Reason For Exam: repeated falls at home Physical Therapy Evaluation and Treat [CONS] Routine Comment: Reason For Exam: repeated falls at home Primary care physician: RN HOME [facility] Hospitalization Reason for admission: DKA Condition: Stable Hospital course: Patient is 86-year-old male with history of dementia and benign prostatic hypertrophy. Patient brought to the emergency room via EMS from home for evaluation of altered mental status. Patient daughter at bedside and giving the story. She stated that he went to the bathroom around 4 AM and when she went back to check on him she found him leaning on the toilet backwards and not breathing. Patient daughter stated that she immediately called 911 and approximately 5 minutes later she saw him moving his left upper extremity. Upon arrival to the ER patient was agitated and required restraint. Patient is moving all his extremities no facial droop was noticed. Stroke scale was 0. Information about this as obtained from the ER physician. Discussed with the family who at the bedside etiology the patient has been with repeated falls which has been worse in the last few weeks. He is known to fall once a week but dialysis day daily occurrence. He was in hospice but there is discussion about transferring him to another hospital as a result he had revoked the previous hospice. They do understand that his dementia is progressive. When I asked if they wanted a full work-up on him they were undecided about this. Intubated they would like him evaluated for syncopal episode that he experienced and also the repeated falls. They also reported that he has not been eating as much as he normally does he would have an issue every now and then according to the family. The last week has actually had very poor appetite. He is assisted for all toileting activities. Work-up in the ER showed mildly elevated troponin which could be attributed to the elevated creatinine and nevertheless he also had a significantly elevated D-dimer. 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 NO Respiratory distress. CTAP due to hematuria which could be secondary to UTI 03/27: Patient remains clinically stable confusion appears to be his baseline due to advanced dementia and does not need restraints but a sitter if possible. Patient is clinically stable to be discharged possibly in a.m. when hospice is arranged. Still waiting on urine culture however patient has been on antibiotics preemptively. A CTA of the chest was done negative for pulmonary embolism. 03/28: Treated for uti, completed therapy, cleared for discharge to snf with hospice. Patient with advanced progressing dementia. Patient remains in restraints secondary to encephalopathy. ECHO obtained shows an EF of 65% with no left heart strain. Will recommend an outpatient event monitor and if patient declines hospice PT/OT Replace electrolytes Case management consult for assistance with possible Hospice transition Patient needs assist with ADL Family understands that patients condition is likely progressing Sliding scale Fall precautions DVT/GI PROPHY ADVANCE CARE PLANNING DISCUSSED FOR 35 MINS Discussed with case management to begin hospice and placement a referral. Disposition: HOME / SELF CARE / HOMELESS Final Discharge Diagnosis (Prints w/discharge instructions): DKA Time spent for discharge: 35 MINS Core Measure Documentation - Palliative Care Palliative Care/ Comfort Measures: Not Applicable - Core Measures Any of the following diagnoses?: none Exam - Physical Exam Narrative exam: VITAL SIGNS: Reviewed. GENERAL: The patient appears normally developed, vital signs as documented. HEAD: No signs of head trauma. EYES: Pupils are equal. Extraocular motions intact. EARS: Hearing grossly intact. MOUTH: Oropharynx is normal. NECK: No adenopathy, no JVD. CHEST: Chest with clear breath sounds bilaterally. No wheezes, rales, or rhonchi. CARDIAC: Regular rate and rhythm. S1 and S2, without murmurs, gallops, or rubs. VASCULAR: No Edema. Peripheral pulses normal and equal in all extremities. ABDOMEN: Soft, non tender and non distended. No rebound or guarding, and no masses palpated. Bowel Sounds normal. MUSCULOSKELETAL: Good range of motion of all major joints. Extremities without clubbing, cyanosis or edema. NEUROLOGIC EXAM: Alert and oriented x3 no focal sensory or strength deficits. SPEECH NORMAL. Follows some commands. PSYCHIATRIC: Mood STABLE SKIN: detail exam as documented in skin assessment - Constitutional Vitals: Temp Pulse Resp BP Pulse Ox 97.5 F L 70 19 135/82 95 03/28/22 04:15 03/28/22 04:00 03/28/22 04:15 03/28/22 04:15 03/28/22 04:00 Plan Activity: advance as tolerated, fall precautions Diet: low salt Special Instructions: record daily weights, record daily BP diary, home hospice Follow up with: CHAS ELI MD [Referring] - 7 Days Prescriptions: amLODIPine 10 mg PO QDAY #30 tablet Sennosides Tab [Senokot] 8.6 mg PO Q12HR #60 tablet Sertraline [Zoloft] 100 mg PO QDAY #30 tablet
[2022-03-28 09:02] VITALS: BP 149/83
[2022-03-28] MEDS: SERTRALINE 100 MG TAB PO SCH (10:55)
[2022-03-28] MEDS: FAMOTIDINE 20 MG TAB PO SCH (10:55)
[2022-03-28] MEDS: amLODIPine 10 MG TAB PO SCH (10:55)
[2022-03-28] MEDS: INSULIN LISPRO 100 UNIT/ML SUB-Q SCH ×2 (10:56→14:17)
[2022-03-28] MEDS: SENNOSIDES 8.6 MG TAB PO SCH (10:56)
[2022-03-28] MEDS: CEFEPIME/NS 2 GM/100 ML 2 GM/100 ML BAG IV SCH (11:15)
== END 2022-03-28 16:52 | disposition hospice, inpatient (51) | DRG 689 ==
LOC: ED 05:00 → 4A 08:45
PROVIDERS: ADMIT Internal Medicine; ATTEND Internal Medicine
DX: N30.00 Acute cystitis without hematuria (principal); G93.41 Metabolic encephalopathy; N17.9 Acute kidney failure, unspecified; E87.2 Acidosis; G90.8 Other disorders of autonomic nervous system; R55 Syncope and collapse; F03.90 Unspecified dementia, unspecified severity, without behavioral disturbance, psychotic disturbance, mood disturbance, and anxiety; Z20.822 Contact with and (suspected) exposure to COVID-19; N40.0 Benign prostatic hyperplasia without lower urinary tract symptoms; E11.9 Type 2 diabetes mellitus without complications; I10 Essential (primary) hypertension; R62.7 Adult failure to thrive; E87.6 Hypokalemia; D72.819 Decreased white blood cell count, unspecified; R31.9 Hematuria, unspecified; D69.6 Thrombocytopenia, unspecified; Z78.1 Physical restraint status; Z79.899 Other long term (current) drug therapy; Z68.25 Body mass index [BMI] 25.0-25.9, adult
CPT/HCPCS: 36415; 70450; 71045; 71275; 74176; 80048; 80053; 80061; 80320; 81001; 82140; 82550; 82553; 82962; 83735; 84443; 84484; 85007; 85025; 85027; 85379; 85610; 85730; 93005; 93306; 93970; G0378; J3490; C8929; G0480; J0692; J1644; J2060; J7042; Q9967; U0003